=== PATIENT | female | born 1945 | race African-American/Black ===

== ENCOUNTER 2017-01-23 20:09 | Inpatient (IN) ==
[2017-01-23] MEDS: *HR* OxyCODONE Immed Rel 5 MG TABLET PO PRN (23:16)
[2017-01-24] MEDS: traMADol 50 MG TABLET PO PRN ×2 (03:22→14:06)
[2017-01-24 05:40] LABS: Basophils % 0.1 %; Hematocrit 30.4 % (35.3-44.9); Hemoglobin 10.6 g/dL (11.5-15.4); Immature Granulocytes % 2.1 % (0-4); Lymphocytes # 1.2 K/mcL (0.6-4.6); Lymphocytes % 10.2 %; Mean Corpuscular HGB Conc 34.9 g/dL (31.6-35.5); Mean Corpuscular Hemoglobin 36.1 pg (28.0-33.3); Mean Corpuscular Volume 103.4 fL (83.0-100.0); Mean Platelet Volume 10.4 fL (9.4-12.4); Monocytes # 0.4 K/mcL (0.0-1.3); Monocytes % 3.5 %; Neutrophils # 10.2 K/mcL (1.6-8.9); Platelet Count 189 K/mcL (140-400); Red Blood Count 2.94 M/mcL (3.82-4.97); Red Cell Distribution Width 13.2 % (11.5-14.5); Segmented Neutrophils % 84.1 %
[2017-01-24 05:54] LABS: BUN/Creatinine Ratio 13 (6-26); Blood Urea Nitrogen 10 mg/dL (7-20); Carbon Dioxide 20 mEq/L (19-29); Chloride 105 mEq/L (98-109); Glucose 175 mg/dL (70-99); Osmolality,Calculated 279 (280-300); Potassium 3.9 mEq/L (3.5-4.5); Sodium 133 mEq/L (136-145); eGFR For African Americans > 60 (> 60); eGFR For Non-African Americans > 60 (> 60)
[2017-01-24] MEDS: *HR* Enoxaparin 40 MG/0.4 ML SYRINGE SQ SCH (06:23)
[2017-01-24] MEDS: Magnesium Oxide 400 MG TABLET PO SCH (08:04)
[2017-01-24] MEDS: Vitamin B Complex/Vit C/Vit E 1 EACH TABLET PO SCH (08:04)
[2017-01-24] MEDS: *HR* OxyCODONE Immed Rel 5 MG TABLET PO PRN ×3 (08:04→21:39)
[2017-01-24] MEDS: Cholecalciferol (D-3) 1,000 UNIT TABLET PO SCH (08:04)
[2017-01-24] MEDS: Folic Acid 1 MG TABLET PO SCH (08:05)
[2017-01-24] MEDS: Gabapentin 300 MG CAPSULE PO SCH ×3 (08:05→21:39)
[2017-01-24] MEDS: amLODIPine 5 MG TABLET PO SCH (08:05)
--- NOTE | 2017-01-24 08:22 | Internal Med History&Physical ---
Date of Encounter: 01/24/17 Time of Encounter: 08:21 Assessment and Plan (1) Periprosthetic fracture of proximal end of femur Current visit: No Status: Acute she is non surgical. she is here for rehab. pt/ot/rt. tramadol and oxycodone for pain (2) Cervical radiculopathy Current visit: No Status: Chronic (3) Alcohol abuse Current visit: No Status: Acute will monitor for signs of withdrawl. she has been in the hospital for several days now. she has not required anything for this so far (4) DVT prophylaxis Current visit: No Status: Acute she is on lovenox. (5) Hypertension Current visit: No Status: Acute will continue home medication Qualifiers: Hypertension type: essential hypertension Qualified Code(s): I10 - Essential (primary) hypertension (6) COPD (chronic obstructive pulmonary disease) Current visit: Yes Status: Acute she is wheezing this morning will add duonebs and check a cxr with her cough. may need to add steroids if not better. Qualifiers: COPD type: unspecified COPD Qualified Code(s): J44.9 - Chronic obstructive pulmonary disease, unspecified (7) Depression Current visit: Yes Status: Acute will need to lower the dose of the celexa with her age. pt aware Qualifiers: Depression Type: unspecified Qualified Code(s): F32.9 - Major depressive disorder, single episode, unspecified Internal Medicine - H&P: HPI Admitted From: Intrahospital Transfer Plans for Post Hospital Care: Home History of present illness: Ms. Joe is a 71 year old female here for rehab for the right hip fracture. it is inoperative. she is toe touch on that leg only. pain at [place] was not well controlled. it is better today. she has been up to the bedside commode and in the chair and did well. she has a hx of drinking at least a pint a day. she is currently not having any symptoms of etoh withdraw. she had a bowel movement yesterday. she did hit her head in the initial fall and it was sore, but she currently denies any pain, rosen, no dizzy, no confusion, no irritability. she was going up stairs, she went up 2 stairs and thought she might fall. So she turned to go down the stairs and fell down and hit her right hip and head. no loc no syncope. She is not having any pain when sitting she will have pain if the hip is touch and with movement Past Med Surg Social Fam HX - Past Medical History Medical history: CHF, COPD, GERD, hyperlipidemia, hypertension, other (gout, cervical stenois, stress incontinence, goiter, rotator cuff tear) Psychiatric history: anxiety, depression - Past Surgical History Surgical History: cholecystectomy, hip replacement (bilateral), other (04/2014 cervical spine, rectal fistula, bps, tonsil08/16/15 right shoulder arthroscopy rotator cuff repair resection distal clavicle. ) - Social History Smoking Status: Former smoker (quit in 1997) Smokeless Tobacco Status: No Alcohol use: heavy (at least a pint a day), recent Drug use: none - Family History Brother Adopted: No Living Status: Still Living Hx Family Cardiac Disorders: Yes (htn, gout) Hx Family Respiratory Disorders: No Hx Family Cancer: Yes Hx Family GI Disorders: No Hx Family Genitourinary Disorders: No Hx Family Endocrine Disorder: No Hx Family Musculoskeletal Disorders: No Hx Family Neuromuscular Disorders: No Hx Family Neurologic Disorders: No Hx Family HEENT Disorders: No Hx Family Autoimmune Disorders: No Hx Family Reproductive Disorders: No Hx Family Psychosocial Disorders: No Hx Family Medical Disorders: No Sister Hx Family Cardiac Disorders: Yes (htn,gout) Mother Living Status: Hx Family Cardiac Disorders: Yes (htn) Hx Family Neurologic Disorders: Yes (cva) Internal Medicine - H&P: Meds Allopurinol [Zyloprim 300 MG] 300 mg PO DAILY 05/30/15 [History] Atenolol [Tenormin] 50 mg PO DAILY 05/30/15 [History] Citalopram Hydrobromide [Celexa] 40 mg PO DAILY 05/30/15 [History] Gabapentin [Neurontin] 600 mg PO TID 05/30/15 [History] Magnesium Oxide [Magnesium] 400 mg PO DAILY 05/30/15 [History] Omeprazole [PriLOSEC] 40 mg PO BID 05/30/15 [History] Pravastatin Sodium [Pravachol] 40 mg PO HS 05/30/15 [History] Cholecalciferol (D-3) [Vitamin D] 1,000 unit PO DAILY 01/19/17 [History] Melatonin/Pyridoxine HCl (B6) [Melatonin 5 mg Tablet] 5 mg PO HS PRN 01/19/17 [ History] Mirtazapine [Remeron] 15 mg PO HS 01/19/17 [History] Ipratropium/Albuterol Neb [Duoneb] 3 ml IH [id number] inhsol 01/23/17 [Rx] Oxycodone HCl [Oxaydo] 5 mg PO Q8H PRN #24 tablet.orl 01/23/17 [Rx] amLODIPine [Norvasc] 10 mg PO DAILY #30 tablet 01/23/17 [Rx] predniSONE [PredniSONE] 40 mg PO DAILY 5 Days tablet 01/23/17 [Rx] 3 Allergy/AdvReac Type Severity Reaction Status Date / Time No Known Allergies Allergy Verified 12/28/16 20:53 All Systems PM: A 10-system review of systems was performed and is negative for pertinent findings except as documented above in the HPI. - Constitutional Constitutional: falls, no chills, no fever(s) - EENT Eyes: no blurry vision (but she does have glasses), no change in vision, no diplopia Nose, mouth and throat: no nasal congestion - Cardiovascular Cardiovascular ROS IM: no claudication, no dyspnea, no lightheadedness, no palpitations, no syncope - Respiratory Respiratory: cough, wheezing, no dyspnea - Gastrointestinal Gastrointestinal: no constipation (now but was intitally), no diarrhea, no hematochezia, no loose stools, no melena, no nausea, no vomiting - Genitourinary Genitourinary: urinary incontinence (hard to make it on time), urinary urgency, no dysuria, no urinary frequency - Musculoskeletal Musculoskeletal ROS IM: limited range of motion (of the right hip with pain and fracture), no numbness - Integumentary Integumentary IM: no pruritus, no rash - Neurological Neurological ROS: no headache(s), no loss of vision, no memory loss, no tremor(s ) - Psychiatric Psychiatric: no depression - Constitutional Vitals: Temp Pulse Resp BP Pulse Ox 97.4 F L 74 18 155/67 97 01/24/17 07:09 01/24/17 07:09 01/24/17 07:09 01/24/17 07:09 01/24/17 07:09 General appearance: Present: A&O X 3, pleasant, no acute distress, obese, answers questions appropriately - Head Head exam: Present: atraumatic, normocephalic - Eye Eye exam: Present: EOMI, PERRL - Neck Neck exam general surgery: Present: supple, trachea midline. Absent: lymphadenopathy, tenderness - Respiratory Respiratory exam: Present: wheezes (through out) - Cardiovascular Cardiovascular exam: Present: RRR, +S1, +S2 - GI/Abdominal GI/Abdominal exam: Present: normal bowel sounds, soft, no peritoneal signs. Absent: guarding, mass, tenderness - Extremities Exam Extremities exam: Present: normal capillary refill, pedal edema (trace edema) - Expanded Lower Extremities Exam Hip exam: Present: tenderness. Absent: erythema, full ROM - Neurological Exam Neurological exam: Present: CN II-XII intact. Absent: no focal deficits, facial droop, speech deficit - Skin Skin exam: Present: dry, intact, warm. Absent: rash Internal Med - H&P Results - Labs CBC & Chem 7: 01/24/17 05:00 01/24/17 05:00 Labs: Short CBC 01/24/17 Range/Units 05:00 WBC 12.1 H (4.3-11.1) K/mcL Hgb 10.6 L (11.5-15.4) g/dL Hct 30.4 L (35.3-44.9) % Plt Count 189 (140-400) K/mcL Neutrophils # 10.2 H (1.6-8.9) K/mcL BMP 01/24/17 05:00 Sodium 133 L Potassium 3.9 Chloride 105 Carbon Dioxide 20 BUN 10 Creatinine 0.78 Glucose 175 H Calcium 9.0
[2017-01-24] MEDS: Ipratropium/Albuterol Neb 3 ML IH PRN ×2 (11:59→18:27)
[2017-01-24] MEDS: predniSONE 20 MG TABLET PO SCH (14:04)
[2017-01-24 19:09] LABS: Bilirubin,Urine Negative (Negative); Blood,Urine Negative (Negative); Clarity,Urine Clear (Clear); Color,Urine Yellow (Yellow); Glucose,Urine (UA) Normal (Normal); Ketones,Urine Negative (Negative); Leukocyte Esterase,Urine Small (Negative); Nitrite,Urine Negative (Negative); PH,Urine 6.5 pH Units (5.0-8.0); Protein,Urine Negative (Neg-Trace); Specific Gravity,Urine <= 1.005 (1.010-1.025); Urobilinogen,Urine Normal (Normal)
[2017-01-24 20:03] LABS: Bacteria,Urine Moderate per hpf (None-Few)
[2017-01-24] MEDS: Mirtazapine 15 MG TABLET PO SCH (21:39)
[2017-01-25] MEDS: traMADol 50 MG TABLET PO PRN ×3 (02:32→20:24)
[2017-01-25] MEDS: *HR* OxyCODONE Immed Rel 5 MG TABLET PO PRN ×3 (04:15→16:29)
[2017-01-25 06:00] LABS: Basophils % 0.1 %; Hematocrit 33.8 % (35.3-44.9); Hemoglobin 11.6 g/dL (11.5-15.4); Immature Granulocytes % 2.1 % (0-4); Lymphocytes # 1.7 K/mcL (0.6-4.6); Lymphocytes % 11.3 %; Mean Corpuscular HGB Conc 34.3 g/dL (31.6-35.5); Mean Corpuscular Hemoglobin 35.8 pg (28.0-33.3); Mean Corpuscular Volume 104.3 fL (83.0-100.0); Mean Platelet Volume 10.4 fL (9.4-12.4); Monocytes # 0.7 K/mcL (0.0-1.3); Monocytes % 4.8 %; Nucleated Red Blood Cells 0.1 /100 WBC (0); Platelet Count 241 K/mcL (140-400); Red Blood Count 3.24 M/mcL (3.82-4.97); Red Cell Distribution Width 13.2 % (11.5-14.5); Segmented Neutrophils % 81.7 %
[2017-01-25 06:02] LABS: Neutrophils # 12.2 K/mcL (1.6-8.9)
[2017-01-25 06:12] LABS: BUN/Creatinine Ratio 12 (6-26); Blood Urea Nitrogen 10 mg/dL (7-20); Calcium 9.8 mg/dL (8.6-10.8); Carbon Dioxide 21 mEq/L (19-29); Chloride 104 mEq/L (98-109); Glucose 165 mg/dL (70-99); Osmolality,Calculated 287 (280-300); Potassium 4.1 mEq/L (3.5-4.5); Sodium 137 mEq/L (136-145); eGFR For African Americans > 60 (> 60); eGFR For Non-African Americans > 60 (> 60)
[2017-01-25] MEDS: *HR* Enoxaparin 40 MG/0.4 ML SYRINGE SQ SCH (06:31)
[2017-01-25] MEDS: Ipratropium/Albuterol Neb 3 ML IH PRN ×2 (07:59→20:23)
--- NOTE | 2017-01-25 08:15 | Internal Med Progress Note ---
Date of Encounter: 01/25/17 Time of Encounter: 08:00 - Assessment and plan (1) Abnormal finding on urinalysis Current Visit: Yes Status: Acute Assessment and plan: She had small leukocyte esterase on her UA, repeat culture is pending. She has no symptoms of UTI. She was recently treated with Cipro. (2) Hyperglycemia, drug-induced Current Visit: Yes Status: Acute Assessment and plan: Her hyperglycemia is likely due to her prednisone. I'll check A1c to see if she has a more chronic problem. (3) Alcohol abuse Current Visit: No Status: Acute Assessment and plan: No signs or symptoms of withdrawal. (4) Periprosthetic fracture of proximal end of femur Current Visit: No Status: Acute Assessment and plan: She continues with therapy. Overall she's been compliant. She has good pain control. Goal is for discharge home. (5) Hypertension Current Visit: No Status: Acute Assessment and plan: Blood pressures are a little bit above goal. We'll follow that for right now. Qualifiers: Hypertension type: essential hypertension Qualified Code(s): I10 - Essential (primary) hypertension (6) COPD (chronic obstructive pulmonary disease) Current Visit: Yes Status: Acute Assessment and plan: She still has findings on exam but overall feels better. I will prescribe the MDI as she is requesting. Chest x-ray was negative and I reviewed that report. Qualifiers: COPD type: unspecified COPD Qualified Code(s): J44.9 - Chronic obstructive pulmonary disease, unspecified (7) DVT prophylaxis Current Visit: No Status: Acute Assessment and plan: She is on Lovenox. - Time Spent With Patient Greater than 35 minutes - Subjective Interval history: The patient tells me that overall she is doing pretty well. #HIP FRACTURE She is getting to the bathroom and back with her walker but it's difficult for her. She has pain in the hip if she doesn't move exactly the right way. #COPD WITH ACUTE EXACERBATION She says she still coughing but the sputum is now clear in spite of yellow. He states she has wheezing. She asked for a hand-held inhaler rather than nebulizer" so I don't have to pay for it". #ABNORMAL UA She denies dysuria frequency urgency chills or fever. Her appetite has been good. - Constitutional Vitals: previous BPs 134/67. 148/60) Temp Pulse Resp BP Pulse Ox 97.8 F 73 18 158/86 95 01/25/17 07:01 01/25/17 07:01 01/25/17 07:01 01/25/17 07:01 01/25/17 07:01 General appearance: Present: A&O X 3, pleasant, no acute distress, obese, answers questions appropriately - Respiratory Respiratory exam: Present: rhonchi, wheezes. Absent: accessory muscle use, prolonged expiratory phase (She has moderate scattered rhonchi and wheezes. There is no dyspnea to conversation. Overall she is moving air comfortably. O2 sat on room air is 95%. She is afebrile.), rales, tachypnea - Cardiovascular Cardiovascular exam: Present: RRR, +S1, +S2. Absent: diastolic murmur, gallop, rubs, systolic murmur - Extremities Exam Extremities exam: Present: normal capillary refill, normal inspection, pedal edema (She has mildly pitting pretibial edema in the right lower extremity.), warm. Absent: calf tenderness, cyanotic, tenderness Internal Medicine: Result - Labs CBC & Chem 7: 01/25/17 05:57 01/25/17 05:57 Labs: Short CBC 01/25/17 Range/Units 05:57 WBC 14.9 H (4.3-11.1) K/mcL Hgb 11.6 (11.5-15.4) g/dL Hct 33.8 L (35.3-44.9) % Plt Count 241 (140-400) K/mcL Neutrophils # 12.2 H (1.6-8.9) K/mcL BMP 01/25/17 05:57 Sodium 137 Potassium 4.1 Chloride 104 Carbon Dioxide 21 BUN 10 Creatinine 0.82 Glucose 165 H Calcium 9.8 Urine 01/24/17 Range/Units 19:06 Urine Color Yellow (Yellow) Urine Clarity Clear (Clear) Urine pH 6.5 (5.0-8.0) pH Units Ur Specific [place] <= 1.005 L (1.010-1.025) Urine Protein Negative (Neg-Trace) mg/dL Urine Glucose (UA) Normal (Normal) mg/dL - Impressions Impressions Chest X-Ray 01/24/17 08:46 IMPRESSION: No acute cardiopulmonary findings. D/ / Monika Lugo MD / Monika Lugo MD Interpreting Provider: Monika Lugo MD Consult Discharge Plan - Plan Referrals: Mckenna Viramontes MD [Primary Care Provider] -
[2017-01-25] MEDS: Magnesium Oxide 400 MG TABLET PO SCH (09:32)
[2017-01-25] MEDS: amLODIPine 5 MG TABLET PO SCH (09:33)
[2017-01-25] MEDS: predniSONE 20 MG TABLET PO SCH (09:33)
[2017-01-25] MEDS: Folic Acid 1 MG TABLET PO SCH (09:33)
[2017-01-25] MEDS: Gabapentin 300 MG CAPSULE PO SCH ×3 (09:33→20:23)
[2017-01-25] MEDS: Cholecalciferol (D-3) 1,000 UNIT TABLET PO SCH (09:34)
[2017-01-25] MEDS: Vitamin B Complex/Vit C/Vit E 1 EACH TABLET PO SCH (09:34)
[2017-01-25] MEDS: Mirtazapine 15 MG TABLET PO SCH (20:24)
[2017-01-26] MEDS: *HR* Enoxaparin 40 MG/0.4 ML SYRINGE SQ SCH (06:09)
[2017-01-26] MEDS: Ipratropium/Albuterol Neb 3 ML IH PRN ×2 (08:35→19:59)
[2017-01-26] MEDS: Gabapentin 300 MG CAPSULE PO SCH ×3 (08:57→19:59)
[2017-01-26] MEDS: Folic Acid 1 MG TABLET PO SCH (08:57)
[2017-01-26] MEDS: Vitamin B Complex/Vit C/Vit E 1 EACH TABLET PO SCH (08:57)
[2017-01-26] MEDS: Cholecalciferol (D-3) 1,000 UNIT TABLET PO SCH (08:57)
[2017-01-26] MEDS: amLODIPine 5 MG TABLET PO SCH (08:57)
[2017-01-26] MEDS: Magnesium Oxide 400 MG TABLET PO SCH (08:58)
[2017-01-26] MEDS: predniSONE 20 MG TABLET PO SCH (08:58)
[2017-01-26] MEDS: *HR* OxyCODONE Immed Rel 5 MG TABLET PO PRN ×3 (09:09→23:18)
--- NOTE | 2017-01-26 13:28 | Internal Med Progress Note ---
Date of Encounter: 01/26/17 Time of Encounter: 13:27 - Assessment and plan (1) Periprosthetic fracture of proximal end of femur Current Visit: No Status: Acute Assessment and plan: She continues with therapy. Overall she's been compliant. She has good pain control. Goal is for discharge home. (2) Cervical radiculopathy Current Visit: No Status: Chronic (3) Alcohol abuse Current Visit: No Status: Acute Assessment and plan: No signs or symptoms of withdrawal. (4) DVT prophylaxis Current Visit: No Status: Acute Assessment and plan: She is on Lovenox. (5) Hypertension Current Visit: No Status: Acute Assessment and plan: Blood pressures are a little bit above goal. We'll follow that for right now. Qualifiers: Hypertension type: essential hypertension Qualified Code(s): I10 - Essential (primary) hypertension (6) COPD (chronic obstructive pulmonary disease) Current Visit: Yes Status: Acute Assessment and plan: She still has findings on exam but overall feels better. I will prescribe the MDI as she is requesting. Chest x-ray was negative and I reviewed that report.on po prednisone Qualifiers: COPD type: unspecified COPD Qualified Code(s): J44.9 - Chronic obstructive pulmonary disease, unspecified (7) Depression Current Visit: Yes Status: Acute Assessment and plan: decreased the citalopram to 20 mg daily due to age Qualifiers: Depression Type: unspecified Qualified Code(s): F32.9 - Major depressive disorder, single episode, unspecified - Subjective Interval history: will have some pain with transfers ok with sitting. no cp, no n/v appetite ok. no jittery, no aggitation, decreased cough and wheeze breathing is better - Constitutional Vitals: Temp Pulse Resp BP Pulse Ox 97.7 F 89 18 142/79 96 01/26/17 07:51 01/26/17 13:24 01/26/17 13:24 01/26/17 13:24 01/26/17 13:24 General appearance: Present: A&O X 3, pleasant, no acute distress, obese, answers questions appropriately - Head Head exam: Present: atraumatic, normocephalic - Neck Neck exam general surgery: Present: supple, trachea midline. Absent: lymphadenopathy, tenderness - Respiratory Respiratory exam: Present: CTAB - Cardiovascular Cardiovascular exam: Present: RRR, +S1, +S2. Absent: systolic murmur - GI/Abdominal GI/Abdominal exam: Present: normal bowel sounds, soft, no peritoneal signs. Absent: guarding, mass, rebound, tenderness - Extremities Exam Extremities exam: Present: warm. Absent: normal capillary refill, pedal edema Internal Medicine: Result - Labs CBC & Chem 7: 01/25/17 05:57 01/25/17 05:57 Consult Discharge Plan - Plan Referrals: Mckenna Viramontes MD [Primary Care Provider] -
[2017-01-26] MEDS: Mirtazapine 15 MG TABLET PO SCH (19:59)
[2017-01-26] MEDS: traMADol 50 MG TABLET PO PRN (20:05)
[2017-01-27] MEDS: traMADol 50 MG TABLET PO PRN ×2 (04:26→20:17)
[2017-01-27] MEDS: *HR* Enoxaparin 40 MG/0.4 ML SYRINGE SQ SCH (05:02)
[2017-01-27 06:08] LABS: Basophils % 0.3 %; Eosinophils % 0.1 %; Hematocrit 29.9 % (35.3-44.9); Hemoglobin 10.2 g/dL (11.5-15.4); Immature Granulocytes % 4.7 % (0-4); Lymphocytes # 1.6 K/mcL (0.6-4.6); Lymphocytes % 12.3 %; Mean Corpuscular HGB Conc 34.1 g/dL (31.6-35.5); Mean Corpuscular Hemoglobin 35.5 pg (28.0-33.3); Mean Corpuscular Volume 104.2 fL (83.0-100.0); Mean Platelet Volume 10.5 fL (9.4-12.4); Monocytes # 1.2 K/mcL (0.0-1.3); Monocytes % 9.1 %; Neutrophils # 9.6 K/mcL (1.6-8.9); Nucleated Red Blood Cells 0.3 /100 WBC (0); Platelet Count 241 K/mcL (140-400); Red Blood Count 2.87 M/mcL (3.82-4.97); Red Cell Distribution Width 13.8 % (11.5-14.5); Segmented Neutrophils % 73.5 %
[2017-01-27 06:47] LABS: BUN/Creatinine Ratio 21 (6-26); Blood Urea Nitrogen 19 mg/dL (7-20); Calcium 9.4 mg/dL (8.6-10.8); Carbon Dioxide 19 mEq/L (19-29); Chloride 108 mEq/L (98-109); Glucose 319 mg/dL (70-99); Osmolality,Calculated 301 (280-300); Potassium 3.8 mEq/L (3.5-4.5); Sodium 138 mEq/L (136-145); eGFR For African Americans > 60 (> 60); eGFR For Non-African Americans > 60 (> 60)
[2017-01-27] MEDS: predniSONE 20 MG TABLET PO SCH (08:32)
[2017-01-27] MEDS: Folic Acid 1 MG TABLET PO SCH (08:32)
[2017-01-27] MEDS: Magnesium Oxide 400 MG TABLET PO SCH (08:32)
[2017-01-27] MEDS: Vitamin B Complex/Vit C/Vit E 1 EACH TABLET PO SCH (08:32)
[2017-01-27] MEDS: Cholecalciferol (D-3) 1,000 UNIT TABLET PO SCH (08:32)
[2017-01-27] MEDS: amLODIPine 5 MG TABLET PO SCH (08:32)
[2017-01-27] MEDS: Gabapentin 300 MG CAPSULE PO SCH ×3 (08:32→20:13)
[2017-01-27] MEDS: *HR* OxyCODONE Immed Rel 5 MG TABLET PO PRN ×3 (08:33→22:51)
[2017-01-27] MEDS: Ipratropium/Albuterol Neb 3 ML IH PRN ×2 (09:43→20:13)
[2017-01-27] MEDS: Mirtazapine 15 MG TABLET PO SCH (20:13)
[2017-01-28] MEDS: *HR* Enoxaparin 40 MG/0.4 ML SYRINGE SQ SCH (06:56)
[2017-01-28] MEDS: Magnesium Oxide 400 MG TABLET PO SCH (08:54)
[2017-01-28] MEDS: Folic Acid 1 MG TABLET PO SCH (08:54)
[2017-01-28] MEDS: *HR* OxyCODONE Immed Rel 5 MG TABLET PO PRN ×3 (08:54→22:17)
[2017-01-28] MEDS: Vitamin B Complex/Vit C/Vit E 1 EACH TABLET PO SCH (08:54)
[2017-01-28] MEDS: Gabapentin 300 MG CAPSULE PO SCH ×3 (08:55→20:49)
[2017-01-28] MEDS: predniSONE 20 MG TABLET PO SCH (08:55)
[2017-01-28] MEDS: Cholecalciferol (D-3) 1,000 UNIT TABLET PO SCH (08:55)
[2017-01-28] MEDS: amLODIPine 5 MG TABLET PO SCH (08:55)
--- NOTE | 2017-01-28 10:58 | Internal Med Progress Note ---
Date of Encounter: 01/28/17 Time of Encounter: 10:58 - Assessment and plan (1) Periprosthetic fracture of proximal end of femur Current Visit: No Status: Acute Assessment and plan: She continues with therapy. Overall she's been compliant. She has good pain control. Goal is for discharge home on friday (2) Cervical radiculopathy Current Visit: No Status: Chronic (3) Alcohol abuse Current Visit: No Status: Acute Assessment and plan: No signs or symptoms of withdrawal. (4) DVT prophylaxis Current Visit: No Status: Acute Assessment and plan: She is on Lovenox. (5) Hypertension Current Visit: No Status: Acute Assessment and plan: Blood pressures are a little bit above goal. We'll follow that for right now. Qualifiers: Hypertension type: essential hypertension Qualified Code(s): I10 - Essential (primary) hypertension (6) COPD (chronic obstructive pulmonary disease) Current Visit: Yes Status: Acute Assessment and plan: She still has findings on exam but overall feels better. using nebs. Chest x- ray was negative and I reviewed that report.on po prednisone Qualifiers: COPD type: unspecified COPD Qualified Code(s): J44.9 - Chronic obstructive pulmonary disease, unspecified (7) Depression Current Visit: Yes Status: Acute Assessment and plan: decreased the citalopram to 20 mg daily due to age Qualifiers: Depression Type: unspecified Qualified Code(s): F32.9 - Major depressive disorder, single episode, unspecified - Subjective Interval history: ambulating well but struggles to remember not full weight bearing. no cp, no n/ v appetite ok. no jittery, no aggitation, decreased cough and wheeze breathing is better - Constitutional Vitals: Temp Pulse Resp BP Pulse Ox 97.9 F 66 16 123/81 94 01/28/17 07:00 01/28/17 07:00 01/28/17 07:00 01/28/17 07:00 01/28/17 07:00 General appearance: Present: A&O X 3, pleasant, no acute distress, obese, answers questions appropriately - Head Head exam: Present: atraumatic, normocephalic - Neck Neck exam general surgery: Present: supple, trachea midline. Absent: lymphadenopathy - Respiratory Respiratory exam: Present: CTAB - Cardiovascular Cardiovascular exam: Present: RRR, +S1, +S2 - GI/Abdominal GI/Abdominal exam: Present: normal bowel sounds, soft, no peritoneal signs. Absent: guarding, mass, rebound, tenderness - Extremities Exam Extremities exam: Present: pedal edema (trace pedal) - Skin Skin exam: Present: dry, warm. Absent: rash Internal Medicine: Result - Labs CBC & Chem 7: 01/27/17 05:15 01/27/17 05:15 Consult Discharge Plan - Plan Referrals: Mckenna Viramontes MD [Primary Care Provider] -
[2017-01-28] MEDS: traMADol 50 MG TABLET PO PRN (20:49)
[2017-01-28] MEDS: Mirtazapine 15 MG TABLET PO SCH (20:49)
[2017-01-28] MEDS: Ipratropium/Albuterol Neb 3 ML IH PRN (20:50)
[2017-01-29] MEDS: *HR* Enoxaparin 40 MG/0.4 ML SYRINGE SQ SCH (05:40)
[2017-01-29] MEDS: Ipratropium/Albuterol Neb 3 ML IH PRN ×2 (05:47→22:31)
[2017-01-29] MEDS: *HR* OxyCODONE Immed Rel 5 MG TABLET PO PRN ×3 (05:47→19:12)
[2017-01-29] MEDS: amLODIPine 5 MG TABLET PO SCH (08:15)
[2017-01-29] MEDS: Gabapentin 300 MG CAPSULE PO SCH ×3 (08:15→22:29)
[2017-01-29] MEDS: Folic Acid 1 MG TABLET PO SCH (08:15)
[2017-01-29] MEDS: predniSONE 20 MG TABLET PO SCH (08:15)
[2017-01-29] MEDS: Vitamin B Complex/Vit C/Vit E 1 EACH TABLET PO SCH (08:15)
[2017-01-29] MEDS: Cholecalciferol (D-3) 1,000 UNIT TABLET PO SCH (08:16)
[2017-01-29] MEDS: Magnesium Oxide 400 MG TABLET PO SCH (08:16)
--- NOTE | 2017-01-29 12:37 | Physical Med Progress Note ---
Date of Encounter: 01/29/17 Time of Encounter: 12:34 Physical Medicine-PN: Subj Interval history: PMR PCC Note Patient is currently ambulating 150 feet with TTWB. Independent with bed transfers. Mod I for dressing after set up. Patient is set up for bathing. Requires cues for walker safety. Plan for discharge to home on 01/31/17 with assistance at home for cues for safety. - Constitutional Vitals: Vital Signs Temp Pulse Resp BP Pulse Ox 01/29/17 07:17 97.4 F L 81 16 133/55 96 01/28/17 18:53 97.9 F 70 18 122/73 95 Intake and Output 01/28/17 01/29/17 01/29/17 23:59 07:59 15:59 Intake Total 1000 / 1000 750 / 750 480 / 480 Balance 1000 / 1000 750 / 750 480 / 480 Intake: Oral 1000 / 1000 750 / 750 480 / 480 Other: Meal Lunch Percent of Meal Consumed 95% # Voids 1 1 Weight 106.981 kg Patient Weight 01/29/17 23:59 Weight 106.981 kg Physical Medicine-PN: Obj Data - Labs CBC & Chem 7: 01/27/17 05:15 01/27/17 05:15 Consult Discharge Plan - Plan Referrals: Mckenna Viramontes MD [Primary Care Provider] -
[2017-01-29] MEDS: traMADol 50 MG TABLET PO PRN (22:29)
[2017-01-29] MEDS: Mirtazapine 15 MG TABLET PO SCH (22:29)
[2017-01-30] MEDS: *HR* OxyCODONE Immed Rel 5 MG TABLET PO PRN ×4 (00:57→21:16)
[2017-01-30 05:34] LABS: Basophils % 0.2 %; Eosinophils # 0.1 K/mcL (0.0-0.6); Eosinophils % 0.4 %; Hematocrit 31.4 % (35.3-44.9); Hemoglobin 10.7 g/dL (11.5-15.4); Lymphocytes # 2.4 K/mcL (0.6-4.6); Lymphocytes % 15.9 %; Mean Corpuscular HGB Conc 34.1 g/dL (31.6-35.5); Mean Corpuscular Hemoglobin 35.3 pg (28.0-33.3); Mean Corpuscular Volume 103.6 fL (83.0-100.0); Monocytes % 6.8 %; Neutrophils # 10.9 K/mcL (1.6-8.9); Platelet Count 248 K/mcL (140-400); Red Blood Count 3.03 M/mcL (3.82-4.97); Red Cell Distribution Width 14.2 % (11.5-14.5); Segmented Neutrophils % 73.7 %
[2017-01-30 05:45] LABS: BUN/Creatinine Ratio 23 (6-26); Blood Urea Nitrogen 22 mg/dL (7-20); Carbon Dioxide 25 mEq/L (19-29); Chloride 110 mEq/L (98-109); Glucose 182 mg/dL (70-99); Osmolality,Calculated 302 (280-300); Potassium 3.5 mEq/L (3.5-4.5); Sodium 142 mEq/L (136-145); eGFR For African Americans > 60 (> 60); eGFR For Non-African Americans 58 (> 60)
[2017-01-30] MEDS: *HR* Enoxaparin 40 MG/0.4 ML SYRINGE SQ SCH (06:27)
[2017-01-30] MEDS: traMADol 50 MG TABLET PO PRN ×3 (06:32→19:36)
--- NOTE | 2017-01-30 08:22 | Internal Med Progress Note ---
Date of Encounter: 01/30/17 Time of Encounter: 08:22 - Assessment and plan (1) Periprosthetic fracture of proximal end of femur Current Visit: Yes Status: Acute Assessment and plan: She continues with therapy. Overall she's been compliant. She has good pain control. Goal is for discharge home on friday (2) Cervical radiculopathy Current Visit: No Status: Chronic (3) Alcohol abuse Current Visit: No Status: Acute Assessment and plan: No signs or symptoms of withdrawal. (4) DVT prophylaxis Current Visit: No Status: Acute Assessment and plan: She is on Lovenox. (5) Hypertension Current Visit: No Status: Acute Assessment and plan: Blood pressures are a little bit above goal. We'll follow that for right now. Qualifiers: Hypertension type: essential hypertension Qualified Code(s): I10 - Essential (primary) hypertension (6) COPD (chronic obstructive pulmonary disease) Current Visit: Yes Status: Acute Assessment and plan: Chest x-ray was negative done with the prednisone symptoms resolved Qualifiers: COPD type: unspecified COPD Qualified Code(s): J44.9 - Chronic obstructive pulmonary disease, unspecified (7) Depression Current Visit: Yes Status: Acute Assessment and plan: decreased the citalopram to 20 mg daily due to age Qualifiers: Depression Type: unspecified Qualified Code(s): F32.9 - Major depressive disorder, single episode, unspecified - Subjective Interval history: ambulating well . no cp, no n/v appetite ok. no jittery, no aggitation, no cough or wheeze breathing is better. pain is acceptabel, no constipation,no dysuria. she is looking forward to going home tomorrow - Constitutional Vitals: Temp Pulse Resp BP Pulse Ox 98.3 F 71 18 148/83 96 01/30/17 07:11 01/30/17 07:11 01/30/17 07:11 01/30/17 07:11 01/30/17 07:11 General appearance: Present: A&O X 3, pleasant, no acute distress, obese, answers questions appropriately - Head Head exam: Present: atraumatic, normocephalic - Neck Neck exam general surgery: Present: supple, trachea midline. Absent: tenderness - Respiratory Respiratory exam: Present: CTAB - Cardiovascular Cardiovascular exam: Present: RRR, +S1, +S2. Absent: systolic murmur - GI/Abdominal GI/Abdominal exam: Present: normal bowel sounds, soft, no peritoneal signs. Absent: guarding, tenderness - Extremities Exam Extremities exam: Present: normal capillary refill, pedal edema Internal Medicine: Result - Labs CBC & Chem 7: 01/30/17 05:15 01/30/17 05:15 Labs: Short CBC 01/30/17 Range/Units 05:15 WBC 14.8 H (4.3-11.1) K/mcL Hgb 10.7 L (11.5-15.4) g/dL Hct 31.4 L (35.3-44.9) % Plt Count 248 (140-400) K/mcL Neutrophils # 10.9 H (1.6-8.9) K/mcL BMP 01/30/17 05:15 Sodium 142 Potassium 3.5 Chloride 110 H Carbon Dioxide 25 BUN 22 H Creatinine 0.95 Glucose 182 H Calcium 9.0 Consult Discharge Plan - Plan Instructions: Depression (DC), Chronic Obstructive Pulmonary Disease (DC), Chronic Hypertension (DC) Additional Instructions: DO NOT drink alcohol with any of your pain medication. do not drive until ortho clears you to drive Referrals: Alesia Guillen, [employer]PERATOR [Advanced Practice Nurse] - 02/06/17 3:00 pm Prescriptions: OxyCODONE Immed Rel [Roxicodone 5 MG] 5 mg PO Q6HR PRN #60 tablet PRN Reason: Severe Pain Citalopram [CeleXA] 20 mg PO DAILY 1 Days #30 tablet Tramadol HCl [Ultram] 50 mg PO QID PRN #60 tab PRN Reason: Pain
[2017-01-30] MEDS: amLODIPine 5 MG TABLET PO SCH (08:30)
[2017-01-30] MEDS: Magnesium Oxide 400 MG TABLET PO SCH (08:30)
[2017-01-30] MEDS: Cholecalciferol (D-3) 1,000 UNIT TABLET PO SCH (08:30)
[2017-01-30] MEDS: Folic Acid 1 MG TABLET PO SCH (08:30)
[2017-01-30] MEDS: Gabapentin 300 MG CAPSULE PO SCH ×3 (08:31→21:16)
[2017-01-30] MEDS: Vitamin B Complex/Vit C/Vit E 1 EACH TABLET PO SCH (08:31)
--- NOTE | 2017-01-30 08:31 | Discharge Summary ---
Date of Encounter: 01/30/17 Time of Encounter: 08:15 - Discharge Diagnosis (1) Periprosthetic fracture of proximal end of femur Priority: Primary Status: Acute Comments: she fell and fractured her right femur. she was seen by ortho at [place]. she was not a candidate for surgery. she is toe touch only on the right. she is ambulating well with the walker. she is doing well with transfers. she did pt/ ot will here. she met goals and is safe to go home. she will do outpatient PT. her pain has been controlled on the tramadol and oxycodone. (2) Cervical radiculopathy Priority: Secondary Status: Chronic Comments: it was not an issue this admission (3) Alcohol abuse Priority: Secondary Status: Acute Comments: discussed at length several days the risk. discussed that she cannot drink and take her pain medication due to risk of resp supression and falls (4) DVT prophylaxis Priority: Secondary Status: Acute Comments: she was on lovenox. she declined to wear rachana hose (5) Hypertension Priority: Secondary Status: Acute Comments: her bp did get high on few occasions, but was controlled most of the time. at [facility] norvasc was added. will continue Qualifiers: Hypertension type: essential hypertension Qualified Code(s): I10 - Essential (primary) hypertension (6) COPD (chronic obstructive pulmonary disease) Priority: Secondary Status: Acute Comments: she had an exacerbation of the copd as an inpatient. she did get 5 days of prednisone oral and nebs and mdi of rosa isela. the wheezing resolved and she felt better Qualifiers: COPD type: unspecified COPD Qualified Code(s): J44.9 - Chronic obstructive pulmonary disease, unspecified (7) Depression Priority: Secondary Status: Acute Comments: her dose was lowered to 20 since she was over 60 years old. new erx was sent for the lower dose. patient was aware Qualifiers: Depression Type: unspecified Qualified Code(s): F32.9 - Major depressive disorder, single episode, unspecified - Discharge Medications Prescriptions: OxyCODONE Immed Rel [Roxicodone 5 MG] 5 mg PO Q6HR PRN #60 tablet PRN Reason: Severe Pain Citalopram [CeleXA] 20 mg PO DAILY 1 Days #30 tablet Tramadol HCl [Ultram] 50 mg PO QID PRN #60 tab PRN Reason: Pain Home Medications: Allopurinol [Zyloprim 300 MG] 300 mg PO DAILY 05/30/15 [History] Atenolol [Tenormin] 50 mg PO DAILY 05/30/15 [History] Gabapentin [Neurontin] 600 mg PO TID 05/30/15 [History] Omeprazole [PriLOSEC] 40 mg PO BID 05/30/15 [History] Pravastatin Sodium [Pravachol] 40 mg PO HS 05/30/15 [History] Cholecalciferol (D-3) [Vitamin D] 1,000 unit PO DAILY 01/19/17 [History] Melatonin/Pyridoxine HCl (B6) [Melatonin 5 mg Tablet] 5 mg PO HS PRN 01/19/17 [ History] Mirtazapine [Remeron] 15 mg PO HS 01/19/17 [History] Ipratropium/Albuterol Neb [Duoneb] 3 ml IH [id number] inhsol 01/23/17 [Rx] amLODIPine [Norvasc] 10 mg PO DAILY #30 tablet 01/23/17 [Rx] Albuterol Sulfate [Albuterol Inhaler] 2 puff IH [id number] PRN inhaler 01/30/17 [ Rx] Allopurinol [Zyloprim 300 MG] 300 mg PO DAILY tablet 01/30/17 [Rx] Atenolol [Tenormin] 50 mg PO DAILY tablet 01/30/17 [Rx] Cholecalciferol (D-3) [Vitamin D] 1,000 unit PO DAILY tablet 01/30/17 [Rx] Citalopram [CeleXA] 20 mg PO DAILY 1 Days #30 tablet 01/30/17 [Rx] Folic Acid 1 mg PO DAILY tablet 01/30/17 [Rx] Gabapentin [Neurontin] 600 mg PO TID capsule 01/30/17 [Rx] Ipratropium/Albuterol Neb [Duoneb] 3 ml IH [id number] PRN inhsol 01/30/17 [Rx] Mirtazapine [Remeron] 15 mg PO HS tablet 01/30/17 [Rx] Omeprazole [PriLOSEC] 40 mg PO BIDAC capsule. 01/30/17 [Rx] OxyCODONE Immed Rel [Roxicodone 5 MG] 5 mg PO Q6HR PRN #60 tablet 01/30/17 [Rx] Tramadol HCl [Ultram] 50 mg PO QID PRN #60 tab 01/30/17 [Rx] Vitamin B Complex/Vit C/Vit E [Stresstab] 1 each PO DAILY tablet 01/30/17 [Rx] amLODIPine [Norvasc] 10 mg PO DAILY tablet 01/30/17 [Rx] Allergies/Adverse Reactions: 3 Allergy/AdvReac Type Severity Reaction Status Date / Time No Known Allergies Allergy Verified 12/28/16 20:53 Date of admission: 01/23/17 20:19 Primary care physician: Mckenna Viramontes, Consults: 01/23/17 23:58 Consult to Occupational Therapy [CONS] Routine Comment: eval and treat Reason for Consult: eval and treat Consult to Physical Therapy [CONS] Routine Comment: eval and treat Reason for Consult: eval and treat Consult to Recreational Therapy [CONS] Routine Comment: Consult to Supervisor [employer] [CONS] Routine Reason for SW Consult: eval and treat Anticipated date of discharge: 01/31/17 - Patient Status Disposition: Home, Self-Care Condition: Good Functional capacity at discharge: uses cane/walker Overall status at discharge: patient is progressing back to baseline - Discharge Instructions Instructions: Depression (DC), Chronic Obstructive Pulmonary Disease (DC), Chronic Hypertension (DC) Follow Up With: Alesia Guillen CNP [Advanced Practice Nurse] - 02/06/17 3:00 pm Additional Instructions: DO NOT drink alcohol with any of your pain medication. do not drive until ortho clears you to drive - Diet and Activity Activity: ambulate only with your walker (only toe touch on the right foot. do NOT bear full weight on the right) Diet: low fat, low cholesterol Interval History: she was admitted for a right femur fracture and was not a candidate for surgery. she came her for pt/ot and met her goals and was safe to send home. she did have a copd exaceration this stay that was treated with prednisone and nebs. she was asymptomatic after. she did have some elevated blood pressures but amlodipine was stared at [place]. her bp did come down. her citalopram dose was decreased due to her age. her etoh use was discussed. her pain was controlled Hospital course: Ms. Joe is a 71 year old female - Time Spent with Patient Total time spent providing and/or coordinating discharge services: - Constitutional Vitals: Temp Pulse Resp BP Pulse Ox 98.3 F 71 18 148/83 96 01/30/17 07:11 01/30/17 07:11 01/30/17 07:11 01/30/17 07:11 01/30/17 07:11 General appearance: Present: A&O X 3, pleasant, no acute distress, obese, answers questions appropriately - Head Head exam: Present: atraumatic, normocephalic - Neck Neck exam general surgery: Present: supple, trachea midline. Absent: lymphadenopathy - Respiratory Respiratory exam: Present: CTAB - Cardiovascular Cardiovascular exam: Present: RRR, +S1, +S2. Absent: systolic murmur - GI/Abdominal GI/Abdominal exam: Present: normal bowel sounds, soft, no peritoneal signs. Absent: guarding, tenderness - Extremities Exam Extremities exam: Present: normal capillary refill, pedal edema - Skin Skin exam: Present: dry, warm. Absent: rash
[2017-01-30] MEDS: Ipratropium/Albuterol Neb 3 ML IH PRN (14:17)
[2017-01-30] MEDS: Mirtazapine 15 MG TABLET PO SCH (21:17)
[2017-01-31] MEDS: *HR* OxyCODONE Immed Rel 5 MG TABLET PO PRN ×2 (03:18→09:24)
[2017-01-31] MEDS: *HR* Enoxaparin 40 MG/0.4 ML SYRINGE SQ SCH (05:38)
[2017-01-31] MEDS: Ipratropium/Albuterol Neb 3 ML IH PRN (06:08)
[2017-01-31 07:25] VITALS: BP 138/74
[2017-01-31] MEDS: Folic Acid 1 MG TABLET PO SCH (09:03)
[2017-01-31] MEDS: Cholecalciferol (D-3) 1,000 UNIT TABLET PO SCH (09:03)
[2017-01-31] MEDS: Gabapentin 300 MG CAPSULE PO SCH (09:03)
[2017-01-31] MEDS: amLODIPine 5 MG TABLET PO SCH (09:03)
[2017-01-31] MEDS: Vitamin B Complex/Vit C/Vit E 1 EACH TABLET PO SCH (09:03)
[2017-01-31] MEDS: Magnesium Oxide 400 MG TABLET PO SCH (09:03)
== END 2017-01-31 13:10 | disposition home health service (06) | DRG 560 ==
LOC: INPGRE 20:19
PROVIDERS: ADMIT Family Medicine; ATTEND Family Medicine

== ENCOUNTER 2019-02-24 08:55 | Inpatient (IN) ==
[2019-02-24] MEDS ORDERED: 0.9 % Sodium Chloride 1,000 ML IVC ONE (09:17)
[2019-02-24] MEDS ORDERED: Acetaminophen 325 MG TABLET PO ONE (09:17)
[2019-02-24] MEDS ORDERED: Ampicillin/Sulbactam 3,000 MG in D5% in Water (Mini-Bag+) 100 ML IVPB ONE (09:17)
[2019-02-24] MEDS ORDERED: Vancomycin 1,000 MG VIAL IVPB ONE (09:17)
[2019-02-24] MEDS ORDERED: Morphine Sulfate 2 MG/ML SYRINGE IVP ONE (09:17)
[2019-02-24 10:03] LABS: Basophils # 0.1 K/mcL (0.0-0.2); Basophils % 0.2 %; Immature Granulocytes % 1.3 % (0-4); Lymphocytes % 2.5 %; Mean Corpuscular HGB Conc 33.3 g/dL (31.6-35.5); Mean Corpuscular Hemoglobin 33.7 pg (28.0-33.3); Mean Platelet Volume 10.5 fL (9.4-12.4); Monocytes # 1.2 K/mcL (0.0-1.3); Monocytes % 3.9 %; Neutrophils # 27.1 K/mcL (1.6-8.9); Platelet Count 147 K/mcL (140-400); Red Blood Count 4.16 M/mcL (3.82-4.97); Segmented Neutrophils % 92.1 %; White Blood Count 29.4 K/mcL (4.3-11.1)
[2019-02-24 10:17] LABS: Prothrombin Time 11.7 Seconds (9.4-12.1)
[2019-02-24 10:20] LABS: Lymphocytes # 0.7 K/mcL (0.6-4.6)
[2019-02-24 10:22] LABS: Albumin 3.8 g/dL (3.5-5.7); Albumin/Globulin Ratio 1.2 (1.1-2.2); Bilirubin,Direct 0.3 mg/dL (0.0-0.2); Bilirubin,Indirect 0.6 mg/dL (0.0-1.0); Bilirubin,Total 0.9 mg/dL (0.3-1.0); Calcium 9.3 mg/dL (8.6-10.3); Globulin 3.3 g/dL (2.4-3.5); Potassium 3.3 mEq/L (3.5-5.1); Total Protein 7.1 g/dL (6.4-8.9)
[2019-02-24] MEDS ORDERED: Ondansetron 4 MG/2 ML VIAL IVP ONE (11:10)
[2019-02-24] MEDS ORDERED: Potassium Effervescent 25 MEQ TABLET.EFF PO ONE (11:11)
[2019-02-24] MEDS ORDERED: 0.9 % Sodium Chloride 1,000 ML IVC SCH (11:15)
[2019-02-24] MEDS ORDERED: 0.9 % Sodium Chloride 250 ML ONE (11:23)
[2019-02-24] MEDS ORDERED: traMADol 50 MG TABLET PO PRN (13:41)
[2019-02-24] MEDS ORDERED: Ondansetron 4 MG/2 ML VIAL IVP PRN (13:41)
[2019-02-24] MEDS: 0.9 % Sodium Chloride 1,000 ML IVC SCH ×2 (13:45→23:41)
[2019-02-24 15:12] LABS: Bilirubin,Urine Small (Negative); Blood,Urine Trace-lysed (Negative); Clarity,Urine Clear (Clear); Color,Urine Yellow (Yellow); Glucose,Urine (UA) Normal (Normal); Ketones,Urine Negative (Negative); Leukocyte Esterase,Urine Negative (Negative); Nitrite,Urine Negative (Negative); PH,Urine 6.5 pH Units (5.0-8.0); Protein,Urine 100 mg/dL (Neg-Trace); Specific Gravity,Urine 1.025 (1.010-1.025)
[2019-02-24 15:13] LABS: RBC,Urine 0-3 per hpf (0-3); WBC,Urine 0-3 per hpf (0-3)
[2019-02-24 15:14] LABS: Squamous Epithelial Cell,Urine Few per lpf (None-Few)
[2019-02-24] MEDS: Metoprolol XL (24 HR) Succ 50 MG TAB.ER.24H PO SCH (15:51)
[2019-02-24] MEDS: Furosemide 20 MG TABLET PO SCH (15:51)
[2019-02-24] MEDS: Gabapentin 300 MG CAPSULE PO SCH ×2 (15:51→21:19)
[2019-02-24] MEDS ORDERED: Piperacillin/Tazobactam 3.375 GM in 0.9 % Sodium Chloride Mini Bag 100 ML IVPB SCH (16:00)
[2019-02-24] MEDS: *HR* Enoxaparin 100 MG/ML SYRINGE SQ SCH (21:20)
[2019-02-24] MEDS: traZODone 50 MG TABLET PO PRN (21:22)
[2019-02-25 02:40] LABS: Enterococcus by PCR Not Detected (Not Detect); Staphylococcus aureus by PCR Not Detected (Not Detect); Staphylococcus by PCR Not Detected (Not Detect); Streptococcus agalactiae(B)PCR Not Detected (Not Detect); Streptococcus pneumoniae PCR Not Detected (Not Detect); blaKPC Carbapenem-Resist Gene Not Detected (Not Detect); mecA Methicillin-Resist Gene Not Detected (Not Detect); vanA/B Vancomycin-Resist Genes Not Detected (Not Detect)
[2019-02-25 02:41] LABS: Acinetobacter baumannii by PCR Not Detected (Not Detect); Candida albicans by PCR Not Detected (Not Detect); Candida glabrata by PCR Not Detected (Not Detect); Candida krusei by PCR Not Detected (Not Detect); Candida parapsilosis by PCR Not Detected (Not Detect); Candida tropicalis by PCR Not Detected (Not Detect); Enterobacter cloacae Cmplx PCR Not Detected (Not Detect); Enterobacteriaceae by PCR Not Detected (Not Detect); Escherichia coli by PCR Not Detected (Not Detect); Klebsiella oxytoca by PCR Not Detected (Not Detect); Klebsiella pneumoniae by PCR Not Detected (Not Detect); Proteus by PCR Not Detected (Not Detect); Pseudomonas aeruginosa by PCR Not Detected (Not Detect); Serratia marcescens by PCR Not Detected (Not Detect); Streptococcus pyogenes (A) PCR DETECTED (Not Detect)
[2019-02-25 05:56] LABS: Basophils % 0.1 %; Hematocrit 33.2 % (35.3-44.9); Hemoglobin 11.1 g/dL (11.5-15.4); Immature Granulocytes % 1.2 % (0-4); Lymphocytes # 1.2 K/mcL (0.6-4.6); Lymphocytes % 5.2 %; Mean Corpuscular HGB Conc 33.4 g/dL (31.6-35.5); Mean Corpuscular Hemoglobin 33.9 pg (28.0-33.3); Mean Corpuscular Volume 101.5 fL (83.0-100.0); Mean Platelet Volume 10.7 fL (9.4-12.4); Monocytes # 1.2 K/mcL (0.0-1.3); Monocytes % 5.1 %; Neutrophils # 20.5 K/mcL (1.6-8.9); Platelet Count 122 K/mcL (140-400); Red Blood Count 3.27 M/mcL (3.82-4.97); Segmented Neutrophils % 88.4 %; White Blood Count 23.2 K/mcL (4.3-11.1)
[2019-02-25 05:59] LABS: INR 1.1
[2019-02-25] MEDS ORDERED: *HR* Enoxaparin 40 MG/0.4 ML SYRINGE SQ SCH (06:00)
[2019-02-25 06:02] LABS: Activated Partial Thrombo Time 37.7 Seconds (26.0-36.0)
[2019-02-25 06:12] LABS: Alanine Aminotransferase 22 Units/L (7-52); Albumin 2.9 g/dL (3.5-5.7); Albumin/Globulin Ratio 1.1 (1.1-2.2); Alkaline Phosphatase 66 Units/L (34-104); Aspartate Amino Transferase 21 Units/L (13-39); BUN/Creatinine Ratio 20 (6-26); Bilirubin,Total 0.6 mg/dL (0.3-1.0); Blood Urea Nitrogen 17 mg/dL (8-23); Carbon Dioxide 26 mEq/L (23-29); Chloride 106 mEq/L (98-107); Globulin 2.7 g/dL (2.4-3.5); Glucose 115 mg/dL (70-105); Osmolality,Calculated 282 (280-300); Potassium 3.3 mEq/L (3.5-5.1); Sodium 135 mEq/L (136-145); Total Protein 5.6 g/dL (6.4-8.9); eGFR For African Americans > 60 (> 60); eGFR For Non-African Americans > 60 (> 60)
[2019-02-25] MEDS: cefTRIAXone 1,000 MG in 0.9 % Sodium Chloride Mini Bag 100 ML IVPB SCH (08:01)
[2019-02-25] MEDS: *HR* Enoxaparin 100 MG/ML SYRINGE SQ SCH (08:03)
[2019-02-25] MEDS: *HR* LORazepam 0.5 MG TABLET PO SCH (08:03)
[2019-02-25] MEDS: Gabapentin 300 MG CAPSULE PO SCH ×3 (08:03→21:08)
[2019-02-25] MEDS: Metoprolol XL (24 HR) Succ 50 MG TAB.ER.24H PO SCH (08:04)
[2019-02-25] MEDS: Furosemide 20 MG TABLET PO SCH (08:04)
[2019-02-25] MEDS: traMADol 50 MG TABLET PO PRN ×2 (08:13→21:09)
[2019-02-25] MEDS: 0.9 % Sodium Chloride 1,000 ML IVC SCH ×2 (09:59→10:05)
[2019-02-25] MEDS: traZODone 50 MG TABLET PO PRN (21:11)
[2019-02-26 05:03] LABS: Basophils % 0.1 %; Hematocrit 32.8 % (35.3-44.9); Hemoglobin 10.9 g/dL (11.5-15.4); Immature Granulocytes % 1.4 % (0-4); Lymphocytes % 5.5 %; Mean Corpuscular HGB Conc 33.2 g/dL (31.6-35.5); Mean Corpuscular Hemoglobin 33.7 pg (28.0-33.3); Mean Corpuscular Volume 101.5 fL (83.0-100.0); Mean Platelet Volume 10.5 fL (9.4-12.4); Monocytes # 0.9 K/mcL (0.0-1.3); Monocytes % 4.3 %; Neutrophils # 18.5 K/mcL (1.6-8.9); Platelet Count 148 K/mcL (140-400); Red Blood Count 3.23 M/mcL (3.82-4.97); Segmented Neutrophils % 88.7 %; White Blood Count 20.9 K/mcL (4.3-11.1)
[2019-02-26 05:05] LABS: Lymphocytes # 1.2 K/mcL (0.6-4.6)
[2019-02-26 05:18] LABS: BUN/Creatinine Ratio 23 (6-26); Blood Urea Nitrogen 19 mg/dL (8-23); Calcium 8.5 mg/dL (8.6-10.3); Carbon Dioxide 25 mEq/L (23-29); Chloride 110 mEq/L (98-107); Glucose 114 mg/dL (70-105); Osmolality,Calculated 293 (280-300); Potassium 3.3 mEq/L (3.5-5.1); Sodium 140 mEq/L (136-145); eGFR For African Americans > 60 (> 60); eGFR For Non-African Americans > 60 (> 60)
[2019-02-26] MEDS: *HR* Enoxaparin 40 MG/0.4 ML SYRINGE SQ SCH (06:25)
[2019-02-26] MEDS: Gabapentin 300 MG CAPSULE PO SCH ×3 (09:14→20:14)
[2019-02-26] MEDS: *HR* LORazepam 0.5 MG TABLET PO SCH (09:15)
[2019-02-26] MEDS: Metoprolol XL (24 HR) Succ 50 MG TAB.ER.24H PO SCH (09:15)
[2019-02-26] MEDS: cefTRIAXone 1,000 MG in 0.9 % Sodium Chloride Mini Bag 100 ML IVPB SCH (09:15)
[2019-02-26] MEDS: Furosemide 20 MG TABLET PO SCH (09:15)
[2019-02-26] MEDS: traMADol 50 MG TABLET PO PRN ×2 (09:15→16:11)
[2019-02-26] MEDS ORDERED: cefTRIAXone 1,000 MG in Water for inj. (sterile) 10 ML IVP ONE (15:03)
[2019-02-26] MEDS: traZODone 50 MG TABLET PO PRN (20:20)
[2019-02-27] MEDS: traMADol 50 MG TABLET PO PRN ×4 (00:35→19:21)
[2019-02-27 05:55] LABS: Basophils % 0.1 %; Eosinophils % 0.1 %; Hematocrit 32.4 % (35.3-44.9); Hemoglobin 10.6 g/dL (11.5-15.4); Immature Granulocytes % 1.4 % (0-4); Lymphocytes # 1.1 K/mcL (0.6-4.6); Lymphocytes % 5.1 %; Mean Corpuscular HGB Conc 32.7 g/dL (31.6-35.5); Mean Corpuscular Hemoglobin 32.6 pg (28.0-33.3); Mean Corpuscular Volume 99.7 fL (83.0-100.0); Mean Platelet Volume 10.2 fL (9.4-12.4); Monocytes # 0.7 K/mcL (0.0-1.3); Monocytes % 3.4 %; Neutrophils # 18.6 K/mcL (1.6-8.9); Platelet Count 157 K/mcL (140-400); Red Blood Count 3.25 M/mcL (3.82-4.97); Segmented Neutrophils % 89.9 %; White Blood Count 20.7 K/mcL (4.3-11.1)
[2019-02-27] MEDS: *HR* Enoxaparin 40 MG/0.4 ML SYRINGE SQ SCH (05:59)
[2019-02-27 06:15] LABS: BUN/Creatinine Ratio 16 (6-26); Blood Urea Nitrogen 12 mg/dL (8-23); Calcium 8.6 mg/dL (8.6-10.3); Carbon Dioxide 24 mEq/L (23-29); Chloride 107 mEq/L (98-107); Glucose 109 mg/dL (70-105); Osmolality,Calculated 282 (280-300); Potassium 3.2 mEq/L (3.5-5.1); Sodium 136 mEq/L (136-145); eGFR For African Americans > 60 (> 60); eGFR For Non-African Americans > 60 (> 60)
[2019-02-27] MEDS: Gabapentin 300 MG CAPSULE PO SCH ×3 (09:21→21:09)
[2019-02-27] MEDS: Metoprolol XL (24 HR) Succ 50 MG TAB.ER.24H PO SCH (09:21)
[2019-02-27] MEDS: *HR* LORazepam 0.5 MG TABLET PO SCH (09:21)
[2019-02-27] MEDS: Furosemide 20 MG TABLET PO SCH (09:21)
[2019-02-27] MEDS ORDERED: Furosemide 40 MG TABLET PO ONE (13:49)
[2019-02-27] MEDS: cefTRIAXone 2,000 MG in Water for inj. (sterile) 20 ML IVP SCH (15:55)
[2019-02-27] MEDS ORDERED: Metoprolol XL (24 HR) Succ 50 MG TAB.ER.24H PO ONE (17:00)
[2019-02-27] MEDS: traZODone 50 MG TABLET PO PRN (21:08)
[2019-02-28 05:20] LABS: Basophils % 0.2 %; Eosinophils # 0.1 K/mcL (0.0-0.6); Eosinophils % 0.5 %; Hematocrit 34.8 % (35.3-44.9); Hemoglobin 11.6 g/dL (11.5-15.4); Immature Granulocytes % 2.3 % (0-4); Lymphocytes # 1.6 K/mcL (0.6-4.6); Lymphocytes % 8.5 %; Mean Corpuscular HGB Conc 33.3 g/dL (31.6-35.5); Mean Corpuscular Hemoglobin 33.5 pg (28.0-33.3); Mean Corpuscular Volume 100.6 fL (83.0-100.0); Mean Platelet Volume 10.4 fL (9.4-12.4); Monocytes # 0.9 K/mcL (0.0-1.3); Monocytes % 4.8 %; Neutrophils # 15.4 K/mcL (1.6-8.9); Platelet Count 188 K/mcL (140-400); Red Blood Count 3.46 M/mcL (3.82-4.97); Red Cell Distribution Width 15.5 % (11.5-14.5); Segmented Neutrophils % 83.7 %; White Blood Count 18.4 K/mcL (4.3-11.1)
[2019-02-28] MEDS: *HR* Enoxaparin 40 MG/0.4 ML SYRINGE SQ SCH (05:26)
[2019-02-28 05:35] LABS: BUN/Creatinine Ratio 16 (6-26); Blood Urea Nitrogen 12 mg/dL (8-23); Calcium 8.9 mg/dL (8.6-10.3); Carbon Dioxide 28 mEq/L (23-29); Chloride 105 mEq/L (98-107); Glucose 89 mg/dL (70-105); Osmolality,Calculated 289 (280-300); Potassium 3.2 mEq/L (3.5-5.1); Sodium 140 mEq/L (136-145); eGFR For African Americans > 60 (> 60); eGFR For Non-African Americans > 60 (> 60)
[2019-02-28 06:04] LABS: Thyroid Stimulating Hormone 0.208 mcIU/mL (0.340-5.600)
[2019-02-28] MEDS: Metoprolol XL (24 HR) Succ 50 MG TAB.ER.24H PO SCH (08:26)
[2019-02-28] MEDS: Furosemide 20 MG TABLET PO SCH (08:26)
[2019-02-28] MEDS: traMADol 50 MG TABLET PO PRN ×3 (08:26→21:07)
[2019-02-28] MEDS: Gabapentin 300 MG CAPSULE PO SCH ×3 (08:26→21:06)
[2019-02-28] MEDS: *HR* LORazepam 0.5 MG TABLET PO SCH (08:26)
[2019-02-28] MEDS: cefTRIAXone 2,000 MG in Water for inj. (sterile) 20 ML IVP SCH (15:01)
[2019-02-28] MEDS ORDERED: Furosemide 20 MG/2 ML VIAL IVP ONE (15:10)
[2019-02-28] MEDS ORDERED: Metoprolol XL (24 HR) Succ 50 MG TAB.ER.24H PO ONE (16:00)
[2019-02-28] MEDS: Ipratropium/Albuterol Neb 3 ML IH SCH ×2 (16:50→22:10)
[2019-02-28] MEDS ORDERED: Ipratropium/Albuterol Neb 3 ML IH SCH (17:00)
[2019-02-28] MEDS: traZODone 50 MG TABLET PO PRN (21:07)
[2019-03-01] MEDS: *HR* Enoxaparin 40 MG/0.4 ML SYRINGE SQ SCH (04:59)
[2019-03-01] MEDS: Ipratropium/Albuterol Neb 3 ML IH SCH ×2 (04:59→10:11)
[2019-03-01] MEDS: traMADol 50 MG TABLET PO PRN (05:17)
[2019-03-01 06:05] LABS: Basophils # 0.1 K/mcL (0.0-0.2); Basophils % 0.3 %; Eosinophils # 0.1 K/mcL (0.0-0.6); Eosinophils % 0.8 %; Hematocrit 33.8 % (35.3-44.9); Hemoglobin 11.2 g/dL (11.5-15.4); Lymphocytes # 2.9 K/mcL (0.6-4.6); Lymphocytes % 18.6 %; Mean Corpuscular HGB Conc 33.1 g/dL (31.6-35.5); Mean Corpuscular Hemoglobin 33.3 pg (28.0-33.3); Mean Corpuscular Volume 100.6 fL (83.0-100.0); Mean Platelet Volume 10.5 fL (9.4-12.4); Monocytes # 0.9 K/mcL (0.0-1.3); Monocytes % 5.8 %; Nucleated Red Blood Cells 0.1 /100 WBC (0); Platelet Count 219 K/mcL (140-400); Red Blood Count 3.36 M/mcL (3.82-4.97); Red Cell Distribution Width 15.6 % (11.5-14.5); Segmented Neutrophils % 69.5 %; White Blood Count 15.8 K/mcL (4.3-11.1)
[2019-03-01 06:18] LABS: BUN/Creatinine Ratio 12 (6-26); Blood Urea Nitrogen 10 mg/dL (8-23); Calcium 8.9 mg/dL (8.6-10.3); Carbon Dioxide 30 mEq/L (23-29); Chloride 102 mEq/L (98-107); Glucose 109 mg/dL (70-105); Osmolality,Calculated 286 (280-300); Potassium 3.6 mEq/L (3.5-5.1); Sodium 138 mEq/L (136-145); eGFR For African Americans > 60 (> 60); eGFR For Non-African Americans > 60 (> 60)
[2019-03-01] MEDS: *HR* LORazepam 0.5 MG TABLET PO SCH (08:06)
[2019-03-01] MEDS: Gabapentin 300 MG CAPSULE PO SCH (08:06)
[2019-03-01] MEDS: Furosemide 20 MG TABLET PO SCH (08:06)
[2019-03-01] MEDS ORDERED: Metoprolol XL (24 HR) Succ 50 MG TAB.ER.24H PO SCH (09:00)
[2019-03-01] MEDS ORDERED: Isovue-370 500 ML BOTTLE IVP ONE (09:24)
[2019-03-01] MEDS ORDERED: Clindamycin 900 MG/50 ML 900 MG/50 ML IV.SOLN IVPB SCH (09:28)
[2019-03-01 10:17] VITALS: BP 135/80
== END 2019-03-01 12:45 | disposition other institution (70) | DRG 602 ==
LOC: EMEROOGRE 08:55 → INPGRE 13:01
PROVIDERS: ADMIT Family Medicine; ATTEND Family Medicine

== ENCOUNTER 2019-03-10 13:24 | Inpatient (IN) ==
[2019-03-10] MEDS ORDERED: traMADol 50 MG TABLET PO PRN (16:28)
[2019-03-10] MEDS: Gabapentin 300 MG CAPSULE PO SCH (21:02)
[2019-03-10] MEDS: traZODone 50 MG TABLET PO PRN (22:11)
[2019-03-10] MEDS: Amoxicillin 500 MG CAPSULE PO SCH (23:36)
[2019-03-11 05:47] LABS: Basophils # 0.1 K/mcL (0.0-0.2); Basophils % 0.6 %; Eosinophils # 0.1 K/mcL (0.0-0.6); Eosinophils % 0.6 %; Hematocrit 34.8 % (35.3-44.9); Hemoglobin 11.3 g/dL (11.5-15.4); Immature Granulocytes % 1.9 % (0-4); Lymphocytes # 2.9 K/mcL (0.6-4.6); Lymphocytes % 27.1 %; Mean Corpuscular HGB Conc 32.5 g/dL (31.6-35.5); Mean Corpuscular Hemoglobin 33.1 pg (28.0-33.3); Mean Corpuscular Volume 102.1 fL (83.0-100.0); Mean Platelet Volume 9.1 fL (9.4-12.4); Monocytes # 0.7 K/mcL (0.0-1.3); Monocytes % 6.2 %; Neutrophils # 6.9 K/mcL (1.6-8.9); Platelet Count 317 K/mcL (140-400); Red Blood Count 3.41 M/mcL (3.82-4.97); Red Cell Distribution Width 13.9 % (11.5-14.5); Segmented Neutrophils % 63.6 %; White Blood Count 10.8 K/mcL (4.3-11.1)
[2019-03-11 06:04] LABS: BUN/Creatinine Ratio 10 (6-26); Blood Urea Nitrogen 8 mg/dL (8-23); Calcium 9.1 mg/dL (8.6-10.3); Carbon Dioxide 29 mEq/L (23-29); Chloride 99 mEq/L (98-107); Glucose 99 mg/dL (70-105); Osmolality,Calculated 278 (280-300); Potassium 3.5 mEq/L (3.5-5.1); Sodium 135 mEq/L (136-145); eGFR For African Americans > 60 (> 60); eGFR For Non-African Americans > 60 (> 60)
[2019-03-11] MEDS: *HR* Enoxaparin 40 MG/0.4 ML SYRINGE SQ SCH (06:24)
[2019-03-11] MEDS: Thiamine (B-1) 100 MG TABLET PO SCH (07:41)
[2019-03-11] MEDS: traMADol 50 MG TABLET PO PRN ×2 (07:41→15:10)
[2019-03-11] MEDS: Metoprolol XL (24 HR) Succ 50 MG TAB.ER.24H PO SCH (07:41)
[2019-03-11] MEDS: Furosemide 20 MG TABLET PO SCH (07:41)
[2019-03-11] MEDS: Multivit/Ca/Min/Fe/FA 1 TAB TABLET PO SCH (07:42)
[2019-03-11] MEDS: Gabapentin 300 MG CAPSULE PO SCH ×3 (07:42→20:17)
[2019-03-11] MEDS: Folic Acid 1 MG TABLET PO SCH (07:42)
[2019-03-11] MEDS: Amoxicillin 500 MG CAPSULE PO SCH ×3 (07:42→23:14)
[2019-03-11] MEDS ORDERED: Budesonide/Formoterol 160/4.5 1 PUFF INH IH ONE (10:46)
[2019-03-11] MEDS: Budesonide/Formoterol 160/4.5 1 PUFF INH IH SCH ×2 (10:59→22:16)
[2019-03-11] MEDS: traZODone 50 MG TABLET PO PRN (21:50)
[2019-03-12] MEDS: *HR* Enoxaparin 40 MG/0.4 ML SYRINGE SQ SCH (05:24)
[2019-03-12] MEDS: Amoxicillin 500 MG CAPSULE PO SCH ×3 (08:12→23:00)
[2019-03-12] MEDS: Furosemide 20 MG TABLET PO SCH (08:12)
[2019-03-12] MEDS: Thiamine (B-1) 100 MG TABLET PO SCH (08:12)
[2019-03-12] MEDS: Multivit/Ca/Min/Fe/FA 1 TAB TABLET PO SCH (08:12)
[2019-03-12] MEDS: traMADol 50 MG TABLET PO PRN (08:12)
[2019-03-12] MEDS: Metoprolol XL (24 HR) Succ 50 MG TAB.ER.24H PO SCH (08:12)
[2019-03-12] MEDS: Folic Acid 1 MG TABLET PO SCH (08:12)
[2019-03-12] MEDS: Gabapentin 300 MG CAPSULE PO SCH ×3 (08:17→19:45)
[2019-03-12] MEDS: Budesonide/Formoterol 160/4.5 1 PUFF INH IH SCH ×2 (10:04→19:46)
[2019-03-12] MEDS ORDERED: Mag Hydrox/Al Hydrox/Simeth 30 ML UDC PO PRN (10:31)
[2019-03-12] MEDS: traZODone 50 MG TABLET PO PRN (21:51)
[2019-03-13] MEDS: traMADol 50 MG TABLET PO PRN ×3 (02:28→19:49)
[2019-03-13] MEDS: *HR* Enoxaparin 40 MG/0.4 ML SYRINGE SQ SCH (05:26)
[2019-03-13] MEDS: Thiamine (B-1) 100 MG TABLET PO SCH (08:32)
[2019-03-13] MEDS: Gabapentin 300 MG CAPSULE PO SCH ×3 (08:32→20:47)
[2019-03-13] MEDS: Multivit/Ca/Min/Fe/FA 1 TAB TABLET PO SCH (08:33)
[2019-03-13] MEDS: Folic Acid 1 MG TABLET PO SCH (08:33)
[2019-03-13] MEDS: Furosemide 20 MG TABLET PO SCH (08:33)
[2019-03-13] MEDS: Amoxicillin 500 MG CAPSULE PO SCH ×3 (08:33→23:04)
[2019-03-13] MEDS: Metoprolol XL (24 HR) Succ 50 MG TAB.ER.24H PO SCH (08:33)
[2019-03-13] MEDS: Budesonide/Formoterol 160/4.5 1 PUFF INH IH SCH ×2 (11:06→21:42)
[2019-03-13] MEDS: traZODone 50 MG TABLET PO PRN (22:34)
[2019-03-14 05:28] LABS: BUN/Creatinine Ratio 9 (6-26); Blood Urea Nitrogen 8 mg/dL (8-23); Calcium 8.8 mg/dL (8.6-10.3); Carbon Dioxide 30 mEq/L (23-29); Chloride 101 mEq/L (98-107); Glucose 124 mg/dL (70-105); Osmolality,Calculated 282 (280-300); Potassium 3.9 mEq/L (3.5-5.1); Sodium 136 mEq/L (136-145); eGFR For African Americans > 60 (> 60); eGFR For Non-African Americans > 60 (> 60)
[2019-03-14] MEDS: *HR* Enoxaparin 40 MG/0.4 ML SYRINGE SQ SCH (05:59)
[2019-03-14] MEDS: Furosemide 20 MG TABLET PO SCH (08:53)
[2019-03-14] MEDS: Amoxicillin 500 MG CAPSULE PO SCH ×3 (08:53→23:44)
[2019-03-14] MEDS: Gabapentin 300 MG CAPSULE PO SCH ×3 (08:53→20:50)
[2019-03-14] MEDS: Folic Acid 1 MG TABLET PO SCH (08:53)
[2019-03-14] MEDS: Metoprolol XL (24 HR) Succ 50 MG TAB.ER.24H PO SCH (08:53)
[2019-03-14] MEDS: Thiamine (B-1) 100 MG TABLET PO SCH (08:53)
[2019-03-14] MEDS: Multivit/Ca/Min/Fe/FA 1 TAB TABLET PO SCH (08:53)
[2019-03-14] MEDS: Budesonide/Formoterol 160/4.5 1 PUFF INH IH SCH ×2 (11:02→20:50)
[2019-03-14] MEDS: traMADol 50 MG TABLET PO PRN (11:15)
[2019-03-14] MEDS: traZODone 50 MG TABLET PO PRN (21:57)
[2019-03-15] MEDS: *HR* Enoxaparin 40 MG/0.4 ML SYRINGE SQ SCH (04:27)
[2019-03-15] MEDS: Metoprolol XL (24 HR) Succ 50 MG TAB.ER.24H PO SCH (07:54)
[2019-03-15] MEDS: Amoxicillin 500 MG CAPSULE PO SCH ×3 (07:54→22:29)
[2019-03-15] MEDS: Multivit/Ca/Min/Fe/FA 1 TAB TABLET PO SCH (07:54)
[2019-03-15] MEDS: Gabapentin 300 MG CAPSULE PO SCH ×3 (07:54→22:25)
[2019-03-15] MEDS: Furosemide 20 MG TABLET PO SCH (07:54)
[2019-03-15] MEDS: Folic Acid 1 MG TABLET PO SCH (07:55)
[2019-03-15] MEDS: traMADol 50 MG TABLET PO PRN ×2 (07:55→15:26)
[2019-03-15] MEDS: Thiamine (B-1) 100 MG TABLET PO SCH (07:55)
[2019-03-15] MEDS: Budesonide/Formoterol 160/4.5 1 PUFF INH IH SCH ×2 (10:06→22:26)
[2019-03-15] MEDS: traZODone 50 MG TABLET PO PRN (22:26)
[2019-03-16] MEDS: Budesonide/Formoterol 160/4.5 1 PUFF INH IH SCH ×2 (07:07→20:24)
[2019-03-16] MEDS: *HR* Enoxaparin 40 MG/0.4 ML SYRINGE SQ SCH (07:11)
[2019-03-16] MEDS: Thiamine (B-1) 100 MG TABLET PO SCH (08:46)
[2019-03-16] MEDS: Furosemide 20 MG TABLET PO SCH (08:46)
[2019-03-16] MEDS: Folic Acid 1 MG TABLET PO SCH (08:46)
[2019-03-16] MEDS: Multivit/Ca/Min/Fe/FA 1 TAB TABLET PO SCH (08:46)
[2019-03-16] MEDS: traMADol 50 MG TABLET PO PRN ×3 (08:46→20:49)
[2019-03-16] MEDS: Gabapentin 300 MG CAPSULE PO SCH ×3 (08:46→20:23)
[2019-03-16] MEDS: Metoprolol XL (24 HR) Succ 50 MG TAB.ER.24H PO SCH (08:46)
[2019-03-16] MEDS: traZODone 50 MG TABLET PO PRN (22:08)
[2019-03-17] MEDS: *HR* Enoxaparin 40 MG/0.4 ML SYRINGE SQ SCH (06:04)
[2019-03-17 07:22] VITALS: BP 120/64
[2019-03-17] MEDS: Budesonide/Formoterol 160/4.5 1 PUFF INH IH SCH (07:43)
[2019-03-17] MEDS: Furosemide 20 MG TABLET PO SCH (08:24)
[2019-03-17] MEDS: Gabapentin 300 MG CAPSULE PO SCH (08:25)
[2019-03-17] MEDS: Metoprolol XL (24 HR) Succ 50 MG TAB.ER.24H PO SCH (08:25)
[2019-03-17] MEDS: Multivit/Ca/Min/Fe/FA 1 TAB TABLET PO SCH (08:25)
[2019-03-17] MEDS: Thiamine (B-1) 100 MG TABLET PO SCH (08:25)
[2019-03-17] MEDS: Folic Acid 1 MG TABLET PO SCH (08:25)
[2019-03-17] MEDS: traMADol 50 MG TABLET PO PRN (08:27)
== END 2019-03-17 13:37 | disposition home health service (06) | DRG 945 ==
LOC: INPGRE 14:19
PROVIDERS: ADMIT Family Medicine; ATTEND Family Medicine

== ENCOUNTER 2021-11-13 15:12 | Inpatient (IN) ==
[2021-11-14] MEDS ORDERED: *HR* LORazepam 2 MG/ML VIAL IVP PRN ×3 (00:07)
[2021-11-14] MEDS: *HR* HYDROcodone/Acet 10/325 mg TABLET PO PRN ×2 (00:13→06:16)
[2021-11-14 01:38] LABS: Bilirubin,Urine Negative (Negative); Blood,Urine Negative (Negative); Clarity,Urine Clear (Clear); Color,Urine Yellow (Yellow); Glucose,Urine (UA) Normal (Normal); Ketones,Urine Negative (Negative); Leukocyte Esterase,Urine Moderate (Negative); Nitrite,Urine Negative (Negative); PH,Urine 6.5 pH Units (5.0-8.0); Protein,Urine Negative (Neg-Trace); Urobilinogen,Urine Normal (Normal)
[2021-11-14 01:42] LABS: Squamous Epithelial Cell,Urine Few per hpf (None-Few)
[2021-11-14 01:43] LABS: Bacteria,Urine Few per hpf (None-Few)
[2021-11-14] MEDS: OLODATEROL IH SCH ×2 (02:21→19:13)
[2021-11-14] MEDS: TIOTROPIUM IH SCH ×2 (02:21→19:13)
[2021-11-14 05:00] LABS: Basophils % 0.1 %; Eosinophils % 0.2 %; Hematocrit 37.5 % (35.3-44.9); Hemoglobin 12.3 g/dL (11.5-15.4); INR 1.2; Immature Granulocytes % 0.3 % (0-4); Lymphocytes # 2.4 K/mcL (0.6-4.6); Lymphocytes % 22.8 %; Mean Corpuscular HGB Conc 32.8 g/dL (31.6-35.5); Mean Corpuscular Hemoglobin 31.8 pg (28.0-33.3); Mean Corpuscular Volume 96.9 fL (83.0-100.0); Monocytes # 0.7 K/mcL (0.0-1.3); Monocytes % 6.5 %; Neutrophils # 7.2 K/mcL (1.6-8.9); Platelet Count 281 K/mcL (140-400); Prothrombin Time 13.4 Seconds (9.4-12.1); Red Blood Count 3.87 M/mcL (3.82-4.97); Red Cell Distribution Width 12.7 % (11.5-14.5); Segmented Neutrophils % 70.1 %; White Blood Count 10.3 K/mcL (4.3-11.1)
[2021-11-14 05:03] LABS: Activated Partial Thrombo Time 33.6 Seconds (26.0-36.0)
[2021-11-14 05:15] LABS: Alanine Aminotransferase 24 Units/L (7-52); Albumin 3.6 g/dL (3.5-5.7); Albumin/Globulin Ratio 1.3 (1.1-2.2); Alkaline Phosphatase 90 Units/L (34-104); Aspartate Amino Transferase 20 Units/L (13-39); BUN/Creatinine Ratio 15 (6-26); Bilirubin,Direct 0.2 mg/dL (0.0-0.2); Bilirubin,Indirect 0.4 mg/dL (0.0-1.0); Bilirubin,Total 0.6 mg/dL (0.3-1.0); Blood Urea Nitrogen 12 mg/dL (8-23); Calcium 10.2 mg/dL (8.6-10.3); Carbon Dioxide 31 mEq/L (23-29); Chloride 100 mEq/L (98-107); Globulin 2.7 g/dL (2.4-3.5); Glucose 91 mg/dL (70-105); Osmolality,Calculated 285 (280-300); Sodium 138 mEq/L (136-145); Total Protein 6.3 g/dL (6.4-8.9); eGFR For African Americans > 60 (> 60); eGFR For Non-African Americans > 60 (> 60)
[2021-11-14 06:06] LABS: Thyroid Stimulating Hormone 0.344 mcIU/mL (0.340-5.600)
[2021-11-14 08:34] LABS: Folate > 22.3 ng/mL (3.0-16.0); Vitamin B12 753 pg/mL (250-1100)
[2021-11-14] MEDS ORDERED: *HR* Enoxaparin 40 MG/0.4 ML SYRINGE SQ SCH (09:00)
[2021-11-14] MEDS: Magnesium Oxide 400 MG TABLET PO SCH ×2 (09:24→20:29)
[2021-11-14] MEDS: Metoprolol XL (24 HR) Succ 50 MG TAB.ER.24H PO SCH (09:24)
[2021-11-14] MEDS: allopurinoL 300 MG TABLET PO SCH (09:24)
[2021-11-14] MEDS: lisinopriL 20 MG TABLET PO SCH (09:25)
[2021-11-14] MEDS: *HR* HYDROcodone/Acet 5/325 mg TABLET PO PRN ×3 (11:52→22:37)
[2021-11-14] MEDS: risperiDONE 0.25 MG TABLET PO SCH (20:29)
[2021-11-15] MEDS ORDERED: Haloperidol Lactate 5 MG/ML VIAL IVP ONE (03:51)
[2021-11-15] MEDS: *HR* HYDROcodone/Acet 5/325 mg TABLET PO PRN ×4 (05:23→21:04)
[2021-11-15] MEDS: *HR* Enoxaparin 40 MG/0.4 ML SYRINGE SQ SCH (05:24)
[2021-11-15] MEDS: risperiDONE 0.25 MG TABLET PO SCH (08:55)
[2021-11-15] MEDS: Metoprolol XL (24 HR) Succ 50 MG TAB.ER.24H PO SCH (08:55)
[2021-11-15] MEDS: Magnesium Oxide 400 MG TABLET PO SCH ×2 (08:55→21:05)
[2021-11-15] MEDS: lisinopriL 20 MG TABLET PO SCH (08:55)
[2021-11-15] MEDS: allopurinoL 300 MG TABLET PO SCH (08:56)
[2021-11-15] MEDS: OLODATEROL IH SCH (18:59)
[2021-11-15] MEDS: TIOTROPIUM IH SCH (18:59)
[2021-11-15] MEDS ORDERED: risperiDONE 0.25 MG TABLET PO SCH (22:00)
[2021-11-16] MEDS: *HR* HYDROcodone/Acet 5/325 mg TABLET PO PRN ×4 (00:45→17:21)
[2021-11-16] MEDS: *HR* Enoxaparin 40 MG/0.4 ML SYRINGE SQ SCH (05:39)
[2021-11-16] MEDS: lisinopriL 20 MG TABLET PO SCH (08:47)
[2021-11-16] MEDS: allopurinoL 300 MG TABLET PO SCH (08:47)
[2021-11-16] MEDS: Magnesium Oxide 400 MG TABLET PO SCH ×2 (08:48→20:21)
[2021-11-16] MEDS: Metoprolol XL (24 HR) Succ 50 MG TAB.ER.24H PO SCH (08:48)
[2021-11-16] MEDS ORDERED: risperiDONE 0.25 MG TABLET PO SCH (09:00)
[2021-11-16] MEDS: haloperidoL 1 MG TABLET PO PRN ×2 (14:20→20:21)
[2021-11-16] MEDS: Ibuprofen 200 MG TABLET PO PRN (14:20)
[2021-11-16] MEDS: OLODATEROL IH SCH (17:32)
[2021-11-16] MEDS: TIOTROPIUM IH SCH (17:32)
[2021-11-16] MEDS: risperiDONE 0.25 MG TABLET PO SCH (20:21)
[2021-11-17] MEDS: *HR* Enoxaparin 40 MG/0.4 ML SYRINGE SQ SCH (10:05)
[2021-11-17] MEDS: lisinopriL 20 MG TABLET PO SCH (10:06)
[2021-11-17] MEDS: *HR* HYDROcodone/Acet 5/325 mg TABLET PO PRN ×3 (10:06→19:50)
[2021-11-17] MEDS: allopurinoL 300 MG TABLET PO SCH (10:07)
[2021-11-17] MEDS: risperiDONE 0.25 MG TABLET PO SCH ×2 (10:07→20:02)
[2021-11-17] MEDS: Magnesium Oxide 400 MG TABLET PO SCH ×2 (10:07→20:03)
[2021-11-17] MEDS: Metoprolol XL (24 HR) Succ 50 MG TAB.ER.24H PO SCH (10:07)
[2021-11-17 10:43] LABS: Eosinophils % 0.1 %; Hematocrit 38.2 % (35.3-44.9); Hemoglobin 12.5 g/dL (11.5-15.4); Immature Granulocytes % 0.3 % (0-4); Lymphocytes # 1.9 K/mcL (0.6-4.6); Lymphocytes % 18.7 %; Mean Corpuscular HGB Conc 32.7 g/dL (31.6-35.5); Mean Corpuscular Hemoglobin 32.1 pg (28.0-33.3); Mean Corpuscular Volume 97.9 fL (83.0-100.0); Monocytes # 0.7 K/mcL (0.0-1.3); Monocytes % 6.5 %; Neutrophils # 7.6 K/mcL (1.6-8.9); Platelet Count 304 K/mcL (140-400); Red Cell Distribution Width 13.1 % (11.5-14.5); Segmented Neutrophils % 74.4 %; White Blood Count 10.2 K/mcL (4.3-11.1)
[2021-11-17 10:58] LABS: Alanine Aminotransferase 25 Units/L (7-52); Albumin 3.8 g/dL (3.5-5.7); Albumin/Globulin Ratio 1.4 (1.1-2.2); Alkaline Phosphatase 96 Units/L (34-104); Aspartate Amino Transferase 21 Units/L (13-39); BUN/Creatinine Ratio 18 (6-26); Bilirubin,Direct 0.2 mg/dL (0.0-0.2); Bilirubin,Indirect 0.5 mg/dL (0.0-1.0); Bilirubin,Total 0.7 mg/dL (0.3-1.0); Blood Urea Nitrogen 15 mg/dL (8-23); Calcium 10.3 mg/dL (8.6-10.3); Carbon Dioxide 29 mEq/L (23-29); Chloride 102 mEq/L (98-107); Globulin 2.8 g/dL (2.4-3.5); Glucose 102 mg/dL (70-105); Magnesium 1.8 mg/dL (1.6-2.6); Osmolality,Calculated 287 (280-300); Phosphorous 4.2 mg/dL (2.7-4.5); Sodium 138 mEq/L (136-145); Total Protein 6.6 g/dL (6.4-8.9); eGFR For African Americans > 60 (> 60); eGFR For Non-African Americans > 60 (> 60)
[2021-11-17] MEDS: Ibuprofen 200 MG TABLET PO PRN ×2 (12:45→23:40)
[2021-11-17] MEDS: TIOTROPIUM IH SCH (20:03)
[2021-11-17] MEDS: OLODATEROL IH SCH (20:03)
[2021-11-17] MEDS: haloperidoL 1 MG TABLET PO PRN (23:39)
[2021-11-18] MEDS: *HR* HYDROcodone/Acet 5/325 mg TABLET PO PRN ×5 (03:55→23:26)
[2021-11-18] MEDS: *HR* Enoxaparin 40 MG/0.4 ML SYRINGE SQ SCH (05:22)
[2021-11-18] MEDS: haloperidoL 1 MG TABLET PO PRN (06:24)
[2021-11-18] MEDS: Magnesium Oxide 400 MG TABLET PO SCH ×2 (08:08→20:18)
[2021-11-18] MEDS: allopurinoL 300 MG TABLET PO SCH (08:08)
[2021-11-18] MEDS: Metoprolol XL (24 HR) Succ 50 MG TAB.ER.24H PO SCH (08:09)
[2021-11-18] MEDS: lisinopriL 20 MG TABLET PO SCH (08:09)
[2021-11-18] MEDS: risperiDONE 0.25 MG TABLET PO SCH ×2 (08:09→20:18)
[2021-11-18] MEDS: OLODATEROL IH SCH (19:02)
[2021-11-18] MEDS: TIOTROPIUM IH SCH (19:02)
[2021-11-18] MEDS: Melatonin 3 MG TABLET PO PRN (20:18)
[2021-11-18] MEDS: Ibuprofen 200 MG TABLET PO PRN (20:18)
[2021-11-19] MEDS: Ibuprofen 200 MG TABLET PO PRN ×3 (01:29→13:28)
[2021-11-19] MEDS: *HR* HYDROcodone/Acet 5/325 mg TABLET PO PRN ×4 (04:59→21:06)
[2021-11-19] MEDS: *HR* Enoxaparin 40 MG/0.4 ML SYRINGE SQ SCH (05:00)
[2021-11-19 05:04] LABS: Eosinophils % 0.5 %; Hematocrit 34.5 % (35.3-44.9); Immature Granulocytes % 0.5 % (0-4); Lymphocytes # 2.5 K/mcL (0.6-4.6); Lymphocytes % 31.4 %; Mean Corpuscular HGB Conc 31.9 g/dL (31.6-35.5); Mean Corpuscular Hemoglobin 31.7 pg (28.0-33.3); Mean Corpuscular Volume 99.4 fL (83.0-100.0); Mean Platelet Volume 10.1 fL (9.4-12.4); Monocytes # 0.7 K/mcL (0.0-1.3); Monocytes % 8.8 %; Neutrophils # 4.7 K/mcL (1.6-8.9); Platelet Count 274 K/mcL (140-400); Red Blood Count 3.47 M/mcL (3.82-4.97); Red Cell Distribution Width 13.1 % (11.5-14.5); Segmented Neutrophils % 58.8 %; White Blood Count 7.9 K/mcL (4.3-11.1)
[2021-11-19 05:14] LABS: BUN/Creatinine Ratio 15 (6-26); Blood Urea Nitrogen 13 mg/dL (8-23); Calcium 9.9 mg/dL (8.6-10.3); Carbon Dioxide 29 mEq/L (23-29); Chloride 103 mEq/L (98-107); Glucose 90 mg/dL (70-105); Osmolality,Calculated 286 (280-300); Sodium 138 mEq/L (136-145); eGFR For African Americans > 60 (> 60); eGFR For Non-African Americans > 60 (> 60)
[2021-11-19] MEDS: allopurinoL 300 MG TABLET PO SCH (07:49)
[2021-11-19] MEDS: risperiDONE 0.25 MG TABLET PO SCH ×2 (07:49→21:06)
[2021-11-19] MEDS: lisinopriL 20 MG TABLET PO SCH (07:49)
[2021-11-19] MEDS: Magnesium Oxide 400 MG TABLET PO SCH ×2 (07:49→21:06)
[2021-11-19] MEDS: Metoprolol XL (24 HR) Succ 50 MG TAB.ER.24H PO SCH (07:50)
[2021-11-19] MEDS: TIOTROPIUM IH SCH (21:07)
[2021-11-19] MEDS: OLODATEROL IH SCH (21:07)
[2021-11-19] MEDS: Budesonide/Formoterol 160/4.5 1 PUFF INH IH SCH (21:50)
[2021-11-20] MEDS: Ibuprofen 200 MG TABLET PO PRN ×2 (00:09→23:35)
[2021-11-20] MEDS: *HR* HYDROcodone/Acet 5/325 mg TABLET PO PRN ×5 (04:16→22:01)
[2021-11-20] MEDS: *HR* Enoxaparin 40 MG/0.4 ML SYRINGE SQ SCH (04:17)
[2021-11-20 04:28] LABS: Basophils % 0.1 %; Eosinophils % 0.3 %; Hematocrit 37.8 % (35.3-44.9); Hemoglobin 12.3 g/dL (11.5-15.4); Immature Granulocytes % 0.2 % (0-4); Lymphocytes # 2.2 K/mcL (0.6-4.6); Lymphocytes % 21.9 %; Mean Corpuscular HGB Conc 32.5 g/dL (31.6-35.5); Mean Corpuscular Volume 98.4 fL (83.0-100.0); Mean Platelet Volume 10.2 fL (9.4-12.4); Monocytes # 0.6 K/mcL (0.0-1.3); Monocytes % 5.8 %; Neutrophils # 7.1 K/mcL (1.6-8.9); Platelet Count 288 K/mcL (140-400); Red Blood Count 3.84 M/mcL (3.82-4.97); Segmented Neutrophils % 71.7 %; White Blood Count 9.9 K/mcL (4.3-11.1)
[2021-11-20] MEDS: Magnesium Oxide 400 MG TABLET PO SCH ×2 (08:02→21:53)
[2021-11-20] MEDS: risperiDONE 0.25 MG TABLET PO SCH ×2 (08:02→21:54)
[2021-11-20] MEDS: lisinopriL 20 MG TABLET PO SCH (08:02)
[2021-11-20] MEDS: Metoprolol XL (24 HR) Succ 50 MG TAB.ER.24H PO SCH (08:02)
[2021-11-20] MEDS: allopurinoL 300 MG TABLET PO SCH (08:02)
[2021-11-20] MEDS: Budesonide/Formoterol 160/4.5 1 PUFF INH IH SCH ×2 (09:19→20:34)
[2021-11-21] MEDS: *HR* Enoxaparin 40 MG/0.4 ML SYRINGE SQ SCH (03:24)
[2021-11-21] MEDS: *HR* HYDROcodone/Acet 5/325 mg TABLET PO PRN ×5 (03:24→21:50)
[2021-11-21] MEDS: Magnesium Oxide 400 MG TABLET PO SCH ×2 (08:04→21:49)
[2021-11-21] MEDS: lisinopriL 20 MG TABLET PO SCH (08:04)
[2021-11-21] MEDS: allopurinoL 300 MG TABLET PO SCH (08:04)
[2021-11-21] MEDS: Metoprolol XL (24 HR) Succ 50 MG TAB.ER.24H PO SCH (08:04)
[2021-11-21] MEDS: risperiDONE 0.25 MG TABLET PO SCH ×2 (08:05→21:49)
[2021-11-21] MEDS: Budesonide/Formoterol 160/4.5 1 PUFF INH IH SCH ×2 (09:04→20:59)
[2021-11-21 13:51] LABS: Basophils % 0.1 %; Eosinophils % 0.3 %; Hematocrit 36.7 % (35.3-44.9); Hemoglobin 11.8 g/dL (11.5-15.4); Immature Granulocytes % 0.4 % (0-4); Lymphocytes # 1.8 K/mcL (0.6-4.6); Lymphocytes % 15.6 %; Mean Corpuscular HGB Conc 32.2 g/dL (31.6-35.5); Mean Corpuscular Hemoglobin 32.1 pg (28.0-33.3); Mean Corpuscular Volume 99.7 fL (83.0-100.0); Mean Platelet Volume 10.1 fL (9.4-12.4); Monocytes # 0.7 K/mcL (0.0-1.3); Monocytes % 5.6 %; Neutrophils # 9.1 K/mcL (1.6-8.9); Platelet Count 300 K/mcL (140-400); Red Blood Count 3.68 M/mcL (3.82-4.97); White Blood Count 11.7 K/mcL (4.3-11.1)
[2021-11-21 14:04] LABS: BUN/Creatinine Ratio 25 (6-26); Blood Urea Nitrogen 21 mg/dL (8-23); Carbon Dioxide 31 mEq/L (23-29); Chloride 101 mEq/L (98-107); Glucose 96 mg/dL (70-105); Osmolality,Calculated 287 (280-300); Potassium 4.2 mEq/L (3.5-5.1); Sodium 137 mEq/L (136-145); eGFR For African Americans > 60 (> 60); eGFR For Non-African Americans > 60 (> 60)
[2021-11-21] MEDS ORDERED: Iopamidol - 370 500 ML MLS IVP ONE (14:52)
[2021-11-21] MEDS: *HR* Enoxaparin 100 MG/ML SYRINGE SQ SCH (18:34)
[2021-11-21] MEDS: Melatonin 3 MG TABLET PO PRN (21:48)
[2021-11-22] MEDS: *HR* HYDROcodone/Acet 5/325 mg TABLET PO PRN ×5 (01:48→20:26)
[2021-11-22] MEDS: *HR* Enoxaparin 100 MG/ML SYRINGE SQ SCH ×2 (06:28→18:16)
[2021-11-22] MEDS: risperiDONE 0.25 MG TABLET PO SCH ×2 (08:01→20:26)
[2021-11-22] MEDS: Magnesium Oxide 400 MG TABLET PO SCH ×2 (08:01→20:26)
[2021-11-22] MEDS: Metoprolol XL (24 HR) Succ 50 MG TAB.ER.24H PO SCH (08:01)
[2021-11-22] MEDS: lisinopriL 20 MG TABLET PO SCH (08:01)
[2021-11-22] MEDS: Ibuprofen 200 MG TABLET PO PRN (08:01)
[2021-11-22] MEDS: allopurinoL 300 MG TABLET PO SCH (08:01)
[2021-11-22] MEDS: Budesonide/Formoterol 160/4.5 1 PUFF INH IH SCH ×2 (10:19→20:50)
[2021-11-22] MEDS: Melatonin 3 MG TABLET PO PRN (20:26)
[2021-11-23] MEDS: *HR* HYDROcodone/Acet 5/325 mg TABLET PO PRN ×5 (02:17→19:53)
[2021-11-23] MEDS: *HR* Enoxaparin 100 MG/ML SYRINGE SQ SCH ×2 (04:32→18:03)
[2021-11-23 05:01] LABS: Hematocrit 34.5 % (35.3-44.9); Mean Corpuscular HGB Conc 31.9 g/dL (31.6-35.5); Mean Corpuscular Hemoglobin 31.7 pg (28.0-33.3); Mean Corpuscular Volume 99.4 fL (83.0-100.0); Mean Platelet Volume 10.2 fL (9.4-12.4); Platelet Count 261 K/mcL (140-400); Red Blood Count 3.47 M/mcL (3.82-4.97); White Blood Count 8.5 K/mcL (4.3-11.1)
[2021-11-23 05:18] LABS: Alanine Aminotransferase 17 Units/L (7-52); Albumin 3.6 g/dL (3.5-5.7); Albumin/Globulin Ratio 1.4 (1.1-2.2); Alkaline Phosphatase 92 Units/L (34-104); Aspartate Amino Transferase 14 Units/L (13-39); BUN/Creatinine Ratio 29 (6-26); Bilirubin,Total 0.4 mg/dL (0.3-1.0); Blood Urea Nitrogen 22 mg/dL (8-23); Calcium 10.1 mg/dL (8.6-10.3); Carbon Dioxide 33 mEq/L (23-29); Chloride 100 mEq/L (98-107); Globulin 2.6 g/dL (2.4-3.5); Glucose 105 mg/dL (70-105); Magnesium 1.9 mg/dL (1.6-2.6); Osmolality,Calculated 290 (280-300); Potassium 4.5 mEq/L (3.5-5.1); Sodium 138 mEq/L (136-145); Total Protein 6.2 g/dL (6.4-8.9); eGFR For African Americans > 60 (> 60); eGFR For Non-African Americans > 60 (> 60)
[2021-11-23] MEDS: risperiDONE 0.25 MG TABLET PO SCH ×2 (08:03→19:52)
[2021-11-23] MEDS: allopurinoL 300 MG TABLET PO SCH (08:03)
[2021-11-23] MEDS: lisinopriL 20 MG TABLET PO SCH (08:04)
[2021-11-23] MEDS: Metoprolol XL (24 HR) Succ 50 MG TAB.ER.24H PO SCH (08:04)
[2021-11-23] MEDS: Magnesium Oxide 400 MG TABLET PO SCH ×2 (08:04→19:52)
[2021-11-23] MEDS: Budesonide/Formoterol 160/4.5 1 PUFF INH IH SCH ×2 (10:11→20:19)
[2021-11-23] MEDS: Melatonin 3 MG TABLET PO PRN (19:53)
[2021-11-24] MEDS: *HR* HYDROcodone/Acet 5/325 mg TABLET PO PRN ×6 (00:03→22:04)
[2021-11-24] MEDS: *HR* Enoxaparin 100 MG/ML SYRINGE SQ SCH (04:25)
[2021-11-24] MEDS: Metoprolol XL (24 HR) Succ 50 MG TAB.ER.24H PO SCH (07:59)
[2021-11-24] MEDS: risperiDONE 0.25 MG TABLET PO SCH ×2 (07:59→21:15)
[2021-11-24] MEDS: lisinopriL 20 MG TABLET PO SCH (07:59)
[2021-11-24] MEDS: allopurinoL 300 MG TABLET PO SCH (07:59)
[2021-11-24] MEDS: Magnesium Oxide 400 MG TABLET PO SCH ×2 (08:00→21:12)
[2021-11-24] MEDS: Ibuprofen 200 MG TABLET PO PRN (08:00)
[2021-11-24] MEDS: Budesonide/Formoterol 160/4.5 1 PUFF INH IH SCH ×2 (10:17→19:54)
[2021-11-24] MEDS: Melatonin 3 MG TABLET PO PRN (21:11)
[2021-11-25] MEDS: haloperidoL 1 MG TABLET PO PRN (01:42)
[2021-11-25] MEDS: Ibuprofen 200 MG TABLET PO PRN ×3 (01:42→23:12)
[2021-11-25] MEDS: *HR* Enoxaparin 40 MG/0.4 ML SYRINGE SQ SCH (05:54)
[2021-11-25] MEDS: *HR* HYDROcodone/Acet 5/325 mg TABLET PO PRN ×4 (05:56→20:23)
[2021-11-25] MEDS: Budesonide/Formoterol 160/4.5 1 PUFF INH IH SCH ×2 (07:04→20:57)
[2021-11-25] MEDS: risperiDONE 0.25 MG TABLET PO SCH ×2 (08:19→20:22)
[2021-11-25] MEDS: Magnesium Oxide 400 MG TABLET PO SCH ×2 (08:19→20:22)
[2021-11-25] MEDS: lisinopriL 20 MG TABLET PO SCH (08:19)
[2021-11-25] MEDS: Metoprolol XL (24 HR) Succ 50 MG TAB.ER.24H PO SCH (08:20)
[2021-11-25] MEDS: allopurinoL 300 MG TABLET PO SCH (08:20)
[2021-11-25] MEDS: Melatonin 3 MG TABLET PO PRN (20:22)
[2021-11-26] MEDS: *HR* HYDROcodone/Acet 5/325 mg TABLET PO PRN ×5 (03:03→21:28)
[2021-11-26] MEDS: *HR* Enoxaparin 40 MG/0.4 ML SYRINGE SQ SCH (05:05)
[2021-11-26] MEDS: Ibuprofen 200 MG TABLET PO PRN (05:07)
[2021-11-26] MEDS: Budesonide/Formoterol 160/4.5 1 PUFF INH IH SCH ×2 (07:30→20:25)
[2021-11-26] MEDS: Magnesium Oxide 400 MG TABLET PO SCH ×2 (08:05→21:27)
[2021-11-26] MEDS: risperiDONE 0.25 MG TABLET PO SCH ×2 (08:05→21:28)
[2021-11-26] MEDS: allopurinoL 300 MG TABLET PO SCH (08:06)
[2021-11-26] MEDS: Metoprolol XL (24 HR) Succ 50 MG TAB.ER.24H PO SCH (08:06)
[2021-11-26] MEDS: lisinopriL 20 MG TABLET PO SCH (08:06)
[2021-11-26] MEDS: Melatonin 3 MG TABLET PO PRN (21:27)
[2021-11-27] MEDS: *HR* HYDROcodone/Acet 5/325 mg TABLET PO PRN ×2 (02:33→06:39)
[2021-11-27] MEDS: *HR* Enoxaparin 40 MG/0.4 ML SYRINGE SQ SCH (06:39)
[2021-11-27 07:04] VITALS: BP 137/80; PULSE 82; TEMP 98.1
[2021-11-27] MEDS: Ibuprofen 200 MG TABLET PO PRN (09:05)
[2021-11-27] MEDS: risperiDONE 0.25 MG TABLET PO SCH (09:05)
[2021-11-27] MEDS: lisinopriL 20 MG TABLET PO SCH (09:05)
[2021-11-27] MEDS: Metoprolol XL (24 HR) Succ 50 MG TAB.ER.24H PO SCH (09:05)
[2021-11-27] MEDS: allopurinoL 300 MG TABLET PO SCH (09:05)
[2021-11-27] MEDS: Magnesium Oxide 400 MG TABLET PO SCH (09:05)
[2021-11-27] MEDS: Budesonide/Formoterol 160/4.5 1 PUFF INH IH SCH (10:11)
[2021-11-27 10:15] VITALS: RESP 18; O2SAT 92
== END 2021-11-27 10:54 | disposition home health service (06) | DRG 280 ==
LOC: INPGRE 23:06
PROVIDERS: ADMIT Family Medicine; ATTEND Family Medicine